=== PATIENT | female | born 1980 | race Caucasian/White ===

== ENCOUNTER 2017-01-09 15:58 | Inpatient (IN) | payer MEDICAID ==
[~2017-01-09] VITALS: Ht 162.6 cm; Wt 72.6 kg
--- NOTE | 2017-01-09 15:58 | NUR ---
Patient was BIBA at this time.
[2017-01-09 16:04] VITALS: BP 133/90
--- NOTE | 2017-01-09 16:14 | NUR ---
Patient being taken to bed 08 via gurney per EMS.
--- NOTE | 2017-01-09 16:32 | NUR ---
36/F biba, according to EMS patient was pulled over on the side of the road, lana in for evaluation of abdominal pain x 2 days. Pt states she was seen at [facility] and was admitted for 5 days. Patient arrived to ED thrashing, moaning, crying c/o abdominal pain. Abdomen is distended, ascitic, firm. Pt states having hx of meth abuse, ETOH abuse and DM. Pt states last alcoholic drink was a month ago and last meth use was 3 weeks ago. Patient is AOX4, very restless and thrashing in bed. Patient c/o 10/10 pain. Denies N/V/D. Denies s/s of UTI. VSS.
--- NOTE | 2017-01-09 17:07 | NUR ---
Sister at bedside.
[2017-01-09] MEDS ORDERED: NACL 0.9% 500 ML IV ONE ×2 (17:35)
[2017-01-09] MEDS ORDERED: KETOROLAC 30 MG/ML VIAL IVP ONE (17:40)
--- NOTE | 2017-01-09 17:49 | NUR ---
Patient taken to x-ray via w/c.
--- NOTE | 2017-01-09 18:08 | NUR ---
Pt returned from x-ray.
--- NOTE | 2017-01-09 18:13 | NUR ---
Family at bedside.
--- NOTE | 2017-01-09 19:17 | NUR ---
Patient being evaluated by Dr. Christina at bedside.
--- NOTE | 2017-01-09 19:24 | NUR ---
Pt report given to Derek. Transfer of care at this time.
--- NOTE | 2017-01-09 19:26 | NUR ---
RECEIVED REPORT FROM ZENA COBB FOR TRANSFER OF CARE.
[2017-01-09] MEDS ORDERED: PIPERACILLIN/TAZOBACTAM 3.375 GM in DEXTROSE 5% 50 ML IV ONE (19:35)
[2017-01-09] MEDS ORDERED: PIPERACILLIN/TAZOBACTAM 3.375 GM VIAL IV ONE (19:51)
[2017-01-09] MEDS ORDERED: ONDANSETRON 4 MG/2 ML VIAL IVP ONE ×2 (20:05→20:30)
[2017-01-09] MEDS ORDERED: NACL 0.9% 1,000 ML IV ONE (20:05)
[2017-01-09] MEDS ORDERED: HYDROmorphone 1 MG/ML AMP IVP ONE (20:05)
--- NOTE | 2017-01-09 20:13 | NUR ---
PT VOMMITED AFTER IV ADMINISTRATION OF ZOFRAN AND DILAUDID. ER MD MADE AWARE. WILL FOLLOW UP WITH ORDERS.
--- NOTE | 2017-01-09 20:30 | NUR ---
PER ER MD DR TORRES. GIVE ANOTHER ZOFRAN IVP WAIT 10 MIN THEN INSERT NG-TUBE.
[2017-01-09] MEDS ORDERED: ACETAMINOPHEN 325 MG TAB PO PRN (20:35)
[2017-01-09] MEDS ORDERED: HYDROcodone/APAP 5/325 MG 1 TAB TAB PO PRN (20:35)
[2017-01-09] MEDS ORDERED: DEXTROSE 50% 50 ML SYR IVP PRN (20:35)
[2017-01-09] MEDS ORDERED: MORPHINE SULFATE 2 MG/ML SYR IVP PRN (20:35)
--- NOTE | 2017-01-09 21:12 | NUR ---
Patient will be admitted to care of DR JERRY. Adm[place] [facility] go to room 105A. Belongings list completed. Report to NIDA ELIZONDO.
--- NOTE | 2017-01-09 21:25 | NUR ---
Admitted from E.. with chief complaint of ABDOMINAL PAIN. A 36 y/o ,Female, Appropriate. ALERT AWAKE ORIENTED X4. INITIAL ASSESSMENT DONE. NO S/S OF RESPIRATORY DISTRESS OR SOB NOTED. NO C/O PAIN OR ANY DISCOMFORT AT THIS TIME. PT HAS NG-TUBE ATTACHED TO INTERMITTENT SUCTION AND TOLERATED WELL. SKIN IS INTACT CLEAN DRY AND WARM TO TOUCH. PLAN OF CARE REVIEWED TO PT AND VERBALIZED UNDERSTANDING. oriented to call light, bed, phone,television, bathroom, smoking policy, visiting hours, procedures, ID bracelet on. Belongings list checked. CALL LIGHT WITHIN REACH. WILL CONTINUE TO MONITOR.
[2017-01-09] MEDS: BLOOD GLUCOSE MONITORING 1 DEV DEV FS SCH (21:30)
--- NOTE | 2017-01-09 21:45 | NUR ---
TAKEN TO X-RAY FOR SMALL BOWEL FOLLOW THROUGH
[2017-01-09] MEDS: DEXT 5% /NACL 0.9% 1,000 ML IV SCH (22:38)
[2017-01-10] VITALS: BP 129/71
--- NOTE | 2017-01-10 | NUR ---
CAME FROM X-RAY. NO C/O ANY DISCOMFORT AT THIS TIME. WILL CONTINUE TO MONITOR,
--- NOTE | 2017-01-10 00:56 | NUR ---
PT IS SLEEPING RIGHT NOW BUT EASILY AROUSABLE. NO S/S OF ANY DISCOMFORT AT THIS TIME. ALL NEEDS ARE ATTENDED. CALL LIGHT WITHIN REACH. WILL CONTINUE TO MONITOR.
[2017-01-10] MEDS: ONDANSETRON 4 MG/2 ML VIAL IVP PRN (04:23)
[2017-01-10] MEDS: DEXT 5% /NACL 0.9% 1,000 ML IV SCH ×3 (04:45→21:35)
--- NOTE | 2017-01-10 06:00 | NUR ---
AM CARE RENDERED. BED LINEN CHANGED. INSTRUCTED PT TO REPOSITION. KEPT CLEAN AND DRY. CALL LIGHT WITHIN REACH. WILL CONTINUE TO MONITOR.
[2017-01-10] MEDS: BLOOD GLUCOSE MONITORING 1 DEV DEV FS SCH ×4 (06:32→21:00)
--- NOTE | 2017-01-10 07:25 | NUR ---
ASSUMED CONTINUITY OF CARE. NO SIGNS AND SYMPTOMS OF ACUTE DISTRESS NOTED. INITIAL ASSESSMENT DONE. KEEP COMFORTABLE ON BED. EXPLAINED DIAGNOSIS, PLAN OF CARE, PAIN MANAGEMENT TEACHING, USE OF CALL LIGHT/BED/TV/BATHROOM. VERBALIZED UNDERSTANDING. CALL LIGHT WITHIN REACH
--- NOTE | 2017-01-10 07:25 | NUR ---
PT HAS NO S/S OF ANY DISCOMFORT. PLAN OF CARE ENDORSE TO AM SHIFT NURSE FOR CONTINUITY OF CARE.
[2017-01-10 08:00] VITALS: BP 118/70
--- NOTE | 2017-01-10 08:00 | NUR ---
Patient's Plan of Care was discussed and reviewed with YOUNG ADULT LIBRARIAN: IJN MEDRANO
--- NOTE | 2017-01-10 08:36 | NUR ---
PATIENT HAS BEEN SCREENED AND CATEGORIZED MODERATE NUTRITION RISK. PATIENT WILL BE SEEN WITHIN 3-5 DAYS OF ADMISSION. 01/12/17-01/14/[address]
[2017-01-10] MEDS ORDERED: ALBUTEROL SULFATE/IPRATROPIU 3 ML SOL IH PRN ×2 (08:50→13:28)
[2017-01-10] MEDS ORDERED: HYDROmorphone 1 MG/ML AMP IVP PRN (08:50)
[2017-01-10] MEDS ORDERED: KCL 20 MEQ/WATER INJ PREMIX 200 ML IV SCH (08:52)
[2017-01-10] MEDS: LEVOFLOXACIN 750 MG/D5W PREMIX 150 ML IV SCH (10:26)
--- NOTE | 2017-01-10 10:40 | NUR ---
JESSICA TO BATHROOM WITHOUT ASSISTANCE. TOLERATED WELL. NO C/O PAIN. NO C/O NAUSEA.
[2017-01-10 12:00] VITALS: BP 115/67
[2017-01-10] MEDS ORDERED: POTASSIUM CHLORIDE 40 MEQ, LIDOCAINE 1% 25 MG in NACL 0.9% 250 ML IV SCH (12:00)
--- NOTE | 2017-01-10 12:00 | NUR ---
DR. WHITEHEAD CAME CHECKED PT. CHART AND SEEN PT..
--- NOTE | 2017-01-10 12:06 | NUR ---
SS NOTE: I SPOKE WITH PT BEDSIDE AND PROVIDED WITH HER WITH OUTPT MENTAL HEALTH RX AND CHEMICAL DEPENDENCY RESOURCES.
[2017-01-10] MEDS: ALBUTEROL SULFATE/IPRATROPIU 3 ML SOL IH SCH ×2 (13:33→19:30)
--- NOTE | 2017-01-10 14:50 | NUR ---
SEEN ASLEEP. EASILY AROUSABLE. NO SOB, NOTED. CALL LIGHT WITHIN REACH.
[2017-01-10] MEDS ORDERED: MAG SULF 2000 MG/WATER PREMIX 50 ML IV SCH (18:00)
--- NOTE | 2017-01-10 19:05 | NUR ---
BEDSIDE REPORT GIVEN TO OLENA GAGNON. IVF INFUSING WELL. ALSO ENDORSED ABOUT MD ORDER OF MAG BURDICK. PT. IN STABLE CONDITION.
--- NOTE | 2017-01-10 19:06 | NUR ---
RECD. RESTING IN BED, AWAKE, A/OX4. RESPIRATION EVEN AND UNLABORED. K RIDER INFUSING AT 68 M/HR LEFT HAND G 20. WITH NGT, RIGHT NARES, ON LOW INTERMITTENT SUCTION DRAINING GREENISH FLUID, MODERATE AMOUNT. ABDOMEN SOFT WITH VERY FAINT BOWEL SOUNDS NOTED ON ALL QUADRANTS. PLAN OF CARE FOR THE SHIFT DISCUSSED. VERBALIZED UNDERSTANDING. DENIES PAIN 0/10.
--- NOTE | 2017-01-10 20:00 | NUR ---
Patient's Plan of Care was discussed and reviewed with SUPERINTENDENT PIER: OLENA LI.
--- NOTE | 2017-01-10 22:36 | NUR ---
MAGNESIUM STARTED. MAG WAS HELD FROM DAY SHIFT DUE TO PT RECEIVING OTHER IV MEDS. WILL CONTINUE TO MONITOR PT.
--- NOTE | 2017-01-10 22:37 | NUR ---
AMBULATED TO BR, GAIT STEADY, SAFETY MAINTAINED.
[2017-01-11] VITALS: BP 139/71
--- NOTE | 2017-01-11 | NUR ---
SLEEPING COMFORTABLY IN BED.
--- NOTE | 2017-01-11 04:00 | NUR ---
AMBULATED THREE TIMES TO BR TO VOID, BACK TO BED AFTER VOIDING. SAFETY MAINTAINED.
[2017-01-11] MEDS: DEXT 5% /NACL 0.9% 1,000 ML IV SCH ×5 (05:55→23:17)
--- NOTE | 2017-01-11 06:00 | NUR ---
STILL SLEEPING COMFORTABLY IN BED. CONDITION REMAIN STABLE. WILL ENDORSE TO AM NURSE FOR CONTINUITY OF CARE.
[2017-01-11] MEDS: BLOOD GLUCOSE MONITORING 1 DEV DEV FS SCH ×4 (06:31→21:17)
[2017-01-11] MEDS ORDERED: FLUCONAZOLE 200 MG/NS PREMIX 100 ML IV SCH (07:00)
--- NOTE | 2017-01-11 07:10 | NUR ---
ENDORSED TO ZENA SHARP FOR CONTINUITY OF CARE.
--- NOTE | 2017-01-11 07:11 | NUR ---
ASSUMED CONTINUITY OF CARE. NO SIGNS AND SYMPTOMS OF ACUTE DISTRESS NOTED. INITIAL ASSESSMENT DONE. HOB ELEVATED. EXPLAINED DIAGNOSIS, PLAN OF CARE, PAIN MANAGEMENT TEACHING, USE OF CALL LIGHT/BED/TV/BATHROOM. VERBALIZED UNDERSTANDING. CALL LIGHT WITHIN REACH.
[2017-01-11] MEDS: ALBUTEROL SULFATE/IPRATROPIU 3 ML SOL IH SCH ×3 (07:29→18:00)
[2017-01-11 08:00] VITALS: BP 108/67
--- NOTE | 2017-01-11 08:00 | NUR ---
Patient's Plan of Care was discussed and reviewed with MIDDLEWARE SYSTEMS ARCHITECT: LILA
[2017-01-11] MEDS: FUROSEMIDE 20 MG/2 ML VIAL IVP SCH (08:08)
[2017-01-11] MEDS ORDERED: POTASSIUM CHLORIDE 10 MEQ TABER PO SCH (08:30)
[2017-01-11] MEDS ORDERED: POTASSIUM PHOSPHATE 15 MM in NACL 0.9% 250 ML IV ONE (08:30)
[2017-01-11] MEDS ORDERED: KCL 20 MEQ/WATER INJ PREMIX 100 ML IV ONE (09:10)
--- NOTE | 2017-01-11 10:14 | NUR ---
EXPLAINED ABOUT INSERTING ANOTHER NEW IV ACCESS FOR ANTI-BIOTIC INFUSION. VERBALIZED UNDERSTANDING BUT PT. REFUSED IV INSERTION.
[2017-01-11 12:00] VITALS: BP 114/68
[2017-01-11] MEDS ORDERED: CLINDAMYCIN 600 MG in DEXTROSE 5% 50 ML IV SCH (13:00)
[2017-01-11] MEDS: CLINDAMYCIN 600 MG in DEXTROSE 5% 50 ML IV SCH ×2 (16:04→21:11)
[2017-01-11] MEDS: LEVOFLOXACIN 750 MG/D5W PREMIX 150 ML IV SCH (17:18)
[2017-01-11] MEDS ORDERED: POTASSIUM CHLORIDE 40 MEQ, LIDOCAINE 1% 25 MG in NACL 0.9% 250 ML IV SCH (18:00)
[2017-01-11] MEDS ORDERED: KCL 20 MEQ/WATER INJ PREMIX 100 ML IV SCH (18:00)
--- NOTE | 2017-01-11 19:23 | NUR ---
BEDSIDE REPORT GIVEN TO BRIAN JEFFERS -NIDA. IVF INFUSING WELL. IN STABLE CONDITION.
--- NOTE | 2017-01-11 19:24 | NUR ---
RECEIVED REPORT FROM DAY RN FOR CONTINUITY OF CARE. PATIENT IS A&OX4, DISCUSSED PLAN OF CARE WITH PATIENT AND FAMILY MEMBERS AT BEDSIDE, VERBALIZED UNDERSTANDING. SHIFT ASSESSMENT DONE, VS TAKEN, STABLE AT THIS TIME. NO S/S OF RESPIRATORY DISTRESS NOTED ON ROOM AIR. PATIENT DENIES PAIN AT THIS TIME. PT HAS IV TO LEFT HAND 20 GAUGE CHANGED DRESSING AND FLUSHED. NG TUBE TO RIGHT NARE, INTERMITTENT LOW SUCTION, 200 ML CLEAR DRAINAGE NOTED. SAFETY/ FALL PRECAUTIONS ENFORCED. CALL LIGHT PLACED WITHIN REACH AND PT ENCOURAGED TO USE FOR ASSISTANCE. WILL CONTINUE TO MONITOR.
[2017-01-11 20:00] VITALS: BP 118/75
--- NOTE | 2017-01-11 20:09 | NUR ---
1929 HHNTX REFUSED BY PATIENT. PT STATES SHE DOES NOT NEED THEM. PT WILL CALL IF SHE WANTS ONE. NO SOB NOTED.. ROOM AIR 97% SATS.
--- NOTE | 2017-01-11 22:04 | NUR ---
SPOKE TO DR. JESSEE I. REGARDING MEDICATIONS FOR SLEEP PER PT REQUEST. INFORMED DR THAT PATIENT HAS 200 ML CLEAR DRAINAGE FROM NG TUBE AND HAD A BOWEL MOVEMENT TODAY. WILL FOLLOW OUT ORDERS GIVEN.
[2017-01-11] MEDS ORDERED: ZOLPIDEM 5 MG TAB PO SCH (22:20)
--- NOTE | 2017-01-11 22:24 | NUR ---
ADMINISTERED MEDICATION FOR SLEEP PER MD ORDER. ALL OTHER NEEDS MET AT THIS TIME. CALL LIGHT WITHIN REACH.
[2017-01-12] VITALS: BP 129/78
--- NOTE | 2017-01-12 00:26 | NUR ---
VS TAKEN, STABLE. PT AMBULATED TO RESTROOM, VOIDED. NO S/S OF DISTRESS OR DISCOMFORT NOTED. WILL CONTINUE TO MONITOR.
[2017-01-12] MEDS: DEXT 5% /NACL 0.9% 1,000 ML IV SCH ×6 (00:54→23:53)
--- NOTE | 2017-01-12 02:03 | NUR ---
PT AMBULATED TO RESTROOM. NO S/S OF DISTRESS OR DISCOMFORT NOTED WILL CONTINUE TO MONITOR.
--- NOTE | 2017-01-12 03:52 | NUR ---
PT IS SLEEPING. NO S/S OF DISTRESS OR DISCOMFORT. NG TUBE DRAINING GREEN OUTPUT. WILL CONTINUE TO MONITOR.
[2017-01-12] MEDS: CLINDAMYCIN 600 MG in DEXTROSE 5% 50 ML IV SCH ×3 (04:52→20:31)
[2017-01-12] MEDS: BLOOD GLUCOSE MONITORING 1 DEV DEV FS SCH ×4 (06:31→20:32)
[2017-01-12] MEDS: INSULIN LISPRO SLIDING SCALE 100 UNITS/ML VIAL SUBQ PRN ×3 (06:32→20:40)
--- NOTE | 2017-01-12 06:32 | NUR ---
BLOOD SUGAR 242, ADMINISTERED INSULIN PER MD ORDER. EMPTIED 700 ML GREEN OUTPUT FROM NG DRAINAGE.
[2017-01-12] MEDS: ALBUTEROL SULFATE/IPRATROPIU 3 ML SOL IH SCH ×3 (07:05→19:44)
--- NOTE | 2017-01-12 07:30 | NUR ---
ENDORSED PATIENT TO DAY RN FOR CONTINUITY OF CARE, PATIENT IS IN STABLE CONDITION.
--- NOTE | 2017-01-12 07:30 | NUR ---
RECEIVED REPORT FROM NIGHT NURSE. PT RESTING COMFORTABLY IN BED. AOX4, ABLE TO VERBALIZE NEEDS. NO S/S OF SOB, CP OR ACUTE DISTRESS. NG TUBE IN PLACE, INTERMITTENT LOW WALL SUCTION, DRAINING DARK GREEN FLUID. IV SITE ASYMPTOMATIC, PATENT AND INTACT. REVIEWED AND DISCUSSED PLAN OF CARE WITH PT, PT VERBALIZES UNDERSTANDING. SAFETY MEASURES ENSURED. CALL LIGHT AND BELONGINGS WITHIN REACH.
[2017-01-12 08:00] VITALS: BP 117/72
[2017-01-12] MEDS ORDERED: POTASSIUM CHLORIDE 40 MEQ, LIDOCAINE 1% 25 MG, MAGNESIUM SULFATE 50% 2,000 MG in NACL 0... IV ONE (09:15)
[2017-01-12] MEDS ORDERED: POTASSIUM CHLORIDE 40 MEQ, LIDOCAINE 1% 25 MG, MAGNESIUM SULFATE 50% 2,000 MG in NACL 0... IV SCH (10:00)
[2017-01-12] MEDS: FUROSEMIDE 20 MG/2 ML VIAL IVP SCH (10:09)
[2017-01-12] MEDS: LEVOFLOXACIN 750 MG/D5W PREMIX 150 ML IV SCH (10:13)
--- NOTE | 2017-01-12 10:25 | NUR ---
LEFT HAND IV SITE INFILTRATED, PT REPORTS PAIN AND TENDERNESS UPON FLUSHING. NEW IV SITE INSERTED ON LEFT FOREARM, ASYMPTOMATIC, PATENT AND INTACT. LEFT HAND IV REMOVED, CANNULA INTACT, PT TOLERATED WELL. MEDICATIONS ADMINISTERED WITH EDUCATION, PT VERBALIZES UNDERSTANDING. PT TOLERATED WELL.
--- NOTE | 2017-01-12 14:00 | NUR ---
ASSISTED PT TO RESTROOM. PT TOLERATED WELL, PT REPORTS NO PAIN WITH ACTIVITY. IVF INFUSING WELL. NO S/S OF ACUTE DISTRESS. SAFETY MEASURES ENSURED. CALL LIGHT WITHIN REACH.
--- NOTE | 2017-01-12 14:29 | NUR ---
01/12/17 RD INITIAL ASSESSMENT COMPLETED PLEASE REFER TO NUTRITION ASSESSMENT UNDER CARE ACTIVITY FOR ESTIMATED NUTRITIONAL NEEDS. RD RECOMMENDATIONS: WHEN MEDICALLY APPROPRIATE ADVANCE TO [facility] 60 GM CLEAR LIQUID DIET --IF INAPPROPRIATE TO ADVANCE DIET CONSIDER NUTRITION SUPPORT D/T PT NPO X3 DAYS 2. RD WILL F/U 2-3 DAYS; HIGH RISK. YANY SANDERSON RD
[2017-01-12 16:00] VITALS: BP 115/71
--- NOTE | 2017-01-12 19:30 | NUR ---
RECEIVED REPORT FROM DAY RN AT BEDSIDE, PATIENT IN STABLE CONDITION, AAOX4 ON ROOM AIR, NO SOB OR SIGN OF DISTRESS AT THIS TIME. PATIENT HAS IV TO LFA PATENT AND INTACT WITH IVF INFUSING WELL. NG TUBE TO RIGHT NARE TO INTERMITTENT SUCTION WITH GREEN DRAINAGE NOTED. PATIENT DENIES PAIN AT THIS TIME, DISCUSSED PLAN OF CARE WITH PATIENT, PATIENT VERBALIZED UNDERSTANDING, SAFETY MEASURES CHECKED, CALL LIGHT WITHIN REACH. WILL CONTINUE TO MONITOR.
--- NOTE | 2017-01-12 19:30 | NUR ---
CONDITION STABLE, ENDORSED PLAN OF CARE TO CARBON GRINDER.
--- NOTE | 2017-01-12 19:45 | NUR ---
PT REFUSED HHNTX AT THIS TIME. NO RESP DISTRESS NOTED OR SOB. PT STATES THAT SHE DOES NOT NEED IT AT THIS TIME.
--- NOTE | 2017-01-12 20:40 | NUR ---
PM MEDS ADMINISTERED, PATIENT TOLERATED WELL BS 168, PATIENT RESTING IN BED WATCHING TV, CALL LIGHT WITHIN REACH. WILL CONTINUE TO MONITOR.
--- NOTE | 2017-01-12 22:53 | NUR ---
PATIENT UP TO RESTROOM, HAD DM, NO SIGN OF DISTRESS, WILL CONTINUE TO MONITOR.
[2017-01-13] VITALS: BP 115/62
--- NOTE | 2017-01-13 00:05 | NUR ---
VITAL SIGNS STABLE, PATIENT SLEEPING COMFORTABLE, NO SOB OR SIGN OF DISTRESS AT THIS TIME, CALL LIGHT WITHIN REACH. WILL CONTINUE TO MONITOR.
--- NOTE | 2017-01-13 02:00 | NUR ---
PATIENT SLEEPING, NO SOB OR SIGN OF DISTRESS AT THIS TIME, CALL LIGHT WITHIN REACH. WILL CONTINUE TO MONITOR
[2017-01-13] MEDS: DEXT 5% /NACL 0.9% 1,000 ML IV SCH ×3 (03:24→11:17)
--- NOTE | 2017-01-13 04:30 | NUR ---
PATIENT SLEEPING, NO SOB OR SIGN OF DISTRESS, CALL LIGHT WITHIN REACH. WILL CONTINUE TO MONITOR.
[2017-01-13] MEDS: CLINDAMYCIN 600 MG in DEXTROSE 5% 50 ML IV SCH ×3 (04:36→21:18)
[2017-01-13] MEDS: INSULIN LISPRO SLIDING SCALE 100 UNITS/ML VIAL SUBQ PRN ×4 (06:44→21:22)
[2017-01-13] MEDS: BLOOD GLUCOSE MONITORING 1 DEV DEV FS SCH ×4 (06:45→21:22)
[2017-01-13] MEDS: ALBUTEROL SULFATE/IPRATROPIU 3 ML SOL IH SCH ×4 (07:08→19:38)
--- NOTE | 2017-01-13 07:22 | NUR ---
ENDORSED PATIENT TO DAY RN AT BEDSIDE, PATIENT IN STABLE CONDITION
[2017-01-13 08:00] VITALS: BP 110/60
[2017-01-13] MEDS: FUROSEMIDE 20 MG/2 ML VIAL IVP SCH (09:00)
--- NOTE | 2017-01-13 09:00 | NUR ---
LASIX HELD DUE TO LOW POTASSIUM. MD AWARE, PENDING ORDERS. MEDICATIONS GIVEN WITH EDUCATION. PT VERBALIZES UNDERSTANDING. PT TOLERATED WELL. SAFETY MEASURES ENSURED.
[2017-01-13] MEDS ORDERED: BENZOCAINE/MENTHOL 1 LOZ MM PRN (09:15)
[2017-01-13] MEDS: LEVOFLOXACIN 750 MG/D5W PREMIX 150 ML IV SCH (09:46)
--- NOTE | 2017-01-13 11:18 | NUR ---
SERUM K 3.1; NOTIFIED DR HERNANDEZ, NEW ORDER ACKNOWLEDGED FOR PJ.
--- NOTE | 2017-01-13 11:45 | NUR ---
PT EVALUATED BY DR VILLANUEVA, DISCUSSED PT CONDITION AND PLAN OF CARE. NEW ORDERS ACKNOWLEDGED AND CARRIED OUT.
[2017-01-13] MEDS: POTASSIUM CHL 20 MEQ/ 1/2 NS 1,000 ML IV SCH ×2 (11:55→14:57)
[2017-01-13] MEDS ORDERED: POTASSIUM CHLORIDE 40 MEQ, LIDOCAINE 1% 25 MG in NACL 0.9% 250 ML IV SCH (12:00)
[2017-01-13] MEDS: METOCLOPRAMIDE 10 MG/2 ML INJ VIAL IVP SCH ×3 (12:56→23:44)
[2017-01-13] MEDS: BENZOCAINE 20% 57 GM CAN MC PRN (13:00)
--- NOTE | 2017-01-13 13:00 | NUR ---
ADMINISTERED MEDICATIONS WITH EDUCATION, PT VERBALIZES UNDERSTANDING. PT TOLERATED WELL. IVF INFUSING WELL. SAFETY MEASURES ENSURED. CALL LIGHT WITHIN REACH. PT C/O SORE THROAT, SEE PAIN ASSESSMENT, MEDICATED ORDERED. FAMILY AT BEDSIDE.
[2017-01-13 16:00] VITALS: BP 101/68
[2017-01-13] MEDS ORDERED: POTASSIUM CHLORIDE 20% 40 MEQ/15 ML UDC GT SCH (17:00)
--- NOTE | 2017-01-13 18:30 | NUR ---
PT VOMITTED EMESIS. PT STATED NOT FEELING NAUSEA AFTER EMESIS, ZOFRAN REFUSED. NOTIFIED RADIOLOGY. SUCTION TO LOW INTERMITTENT PER MD ORDERS. CONDITION STABLE. WILL CONTINUE TO MONITOR.
--- NOTE | 2017-01-13 19:10 | NUR ---
RECEIVED REPORT FROM NIDA MATHEWS/ZOILA AT BEDSIDE. INITIAL ASSESSMENT COMPLETED. PT AAOX4. PT AMBULATORY. PT HAS IV TO LEFT WRIST G 2O; ASYMPTOMATIC, PATENT AND INTACT INFUSING FLUIDS WELL. PT'S SKIN IS INTACT. PT HAS NG TUBE TO RIGHT NARE TO SUCTION. ORIENTED PT TO ROOM AND SURROUNDINGS AND USE OF PALMER LIGHT. EXPLAINED PLAN OF CARE TO PT AND SHE VERBALIZED UNDERSTANDING. CALL LIGHT WITHIN REACH.
--- NOTE | 2017-01-13 19:30 | NUR ---
ENDORSED PLAN OF CARE TO NIGHT NURSE. CONDITION STABLE.
--- NOTE | 2017-01-13 19:30 | NUR ---
CONDITION STABLE, ENDORSED PLAN OF CARE TO BANQUET SERVER RN.
--- NOTE | 2017-01-13 20:40 | NUR ---
REVIEW RN AT BEDSIDE. CALL LIGHT WITHIN REACH.
--- NOTE | 2017-01-13 21:23 | NUR ---
PT TOLERATED 2100 MED WELL. CALL LIGHT WITHIN REACH.
--- NOTE | 2017-01-13 23:48 | NUR ---
0000 REGLAN GIVEN. PT IN BED RESTING, WILL CONTINUE TO MONITOR PT.
[2017-01-14] VITALS: BP 108/74
--- NOTE | 2017-01-14 02:15 | NUR ---
ROUNDS MADE. PT SLEEPING COMFORTABLE, NO SIGNS OF DISTRESS OR DISCOMFORT NOTE. WILL CONTINUE TO MONITOR PT.
[2017-01-14] MEDS: CLINDAMYCIN 600 MG in DEXTROSE 5% 50 ML IV SCH ×3 (04:13→21:15)
--- NOTE | 2017-01-14 04:25 | NUR ---
0500 ANTIBIOTIC INFUSING NOW. PT STABLE, CALL LIGHT WITHIN REACH.
[2017-01-14] MEDS: METOCLOPRAMIDE 10 MG/2 ML INJ VIAL IVP SCH ×4 (05:07→23:39)
[2017-01-14] MEDS: BLOOD GLUCOSE MONITORING 1 DEV DEV FS SCH ×4 (06:12→21:17)
--- NOTE | 2017-01-14 06:22 | NUR ---
PROCEDURE MANAGER AT BEDSIDE DRAWING MORNING LABS.
--- NOTE | 2017-01-14 07:05 | NUR ---
RECEIVED PATIENT REPORT AT BEDSIDE. NO S/S OF DISTRESS NOTED. NO C/O OF PAIN. MOTHER PRESENT AT BEDSIDE. NGT IN PLACE ON INTERMITTENT SUCTION WITH GREEN DRAINAGE NOTED. IV LINE TO THE LEFT WRIST INTACT WITH IVF INFUSING WELL. BED LOWERED WITH CALL LIGHT WITHIN REACH. WILL CONTINUE TO MONITOR
--- NOTE | 2017-01-14 07:29 | NUR ---
ENDORSED PLAN OF CARE TO NIDA LONG. PT IN STABLE CONDITION.
[2017-01-14] MEDS: ONDANSETRON 4 MG/2 ML VIAL IVP PRN (07:50)
[2017-01-14] MEDS: POTASSIUM CHL 20 MEQ/ 1/2 NS 1,000 ML IV SCH (07:51)
[2017-01-14 08:00] VITALS: BP 104/71
--- NOTE | 2017-01-14 08:05 | NUR ---
PATIENT VOMITED 1000ML OF GREEN LIQUID. PATIENT MEDICATE. NO C/O OF PAIN. NGT CLAMPED. SUCTION TO BE RESUMED IN 5HRS. WILL CONTINUE TO MONITOR
--- NOTE | 2017-01-14 09:13 | NUR ---
DR COON NOTIFIED OF SMALL BOWEL FOLLOW THROUGH RESULTS, ORDERS RECEIVED TO PLACE NGT TO LOW-INTERMITTENT SUCTION. ENDORSED TO PT'S NIDA LONG. Addendum: 01/14/17 at 0918 by Erica Stoner RN ADD TO ENTRY: PAGED DR WHITEHEAD AT THIS TIME.
[2017-01-14] MEDS: LEVOFLOXACIN 750 MG/D5W PREMIX 150 ML IV SCH (10:08)
--- NOTE | 2017-01-14 11:10 | NUR ---
PATIENT SEEN BY DR WHITEHEAD
[2017-01-14] MEDS: ALBUTEROL SULFATE/IPRATROPIU 3 ML SOL IH SCH ×2 (12:00→19:15)
--- NOTE | 2017-01-14 12:30 | NUR ---
PATIENT COMFORTABLY RESTING IN BED. NO S/S OF DISTRESS NOTED. NO C/O OF PAIN. FAMILY MEMBERS PRESENT AT BEDSIDE
--- NOTE | 2017-01-14 12:58 | NUR ---
PT REFUSED SCHEDULED BREATHING HHN TX, PT STATED THAT SHE HAD NO RESP DISTRESS OR SOB, INFORMED TO CONTACT NURSE IF PT HAS ANY SOB, WILL CONTINUE TO MONITOR.
--- NOTE | 2017-01-14 14:53 | NUR ---
PATIENT ASLEEP IN BED. NO S/S OF DISTRESS NOTED
[2017-01-14 16:00] VITALS: BP 106/62
--- NOTE | 2017-01-14 17:31 | NUR ---
PATIENT ASLEEP IN BED. NO S/S OF DISTRESS NOTED
[2017-01-14] MEDS ORDERED: DEXT 5% / NACL 0.9% 500 ML IV SCH (17:40)
[2017-01-14] MEDS: POTASSIUM CHL 20 MEQ/D5-1/2NS 1,000 ML IV SCH (18:47)
--- NOTE | 2017-01-14 19:30 | NUR ---
RECEIVED REPORT FROM NIDA LONG AT BEDSIDE. INITIAL ASSESSMENT COMPLETED. PT AAOX4. PT AMBULATORY. PT HAS IV TO LEFT WRIST G 2O; ASYMPTOMATIC, PATENT AND INTACT INFUSING FLUIDS WELL. PT'S SKIN IS INTACT. PT HAS NG TUBE TO RIGHT NARE TO INTERMITENT SUCTION. ORIENTED PT TO ROOM AND SURROUNDINGS AND USE OF PALMER LIGHT. EXPLAINED PLAN OF CARE TO PT AND SHE VERBALIZED UNDERSTANDING. CALL LIGHT WITHIN REACH.
--- NOTE | 2017-01-14 19:33 | NUR ---
GAVE PT REPORT AT BEDSIDE. ENDORSED PATIENT IN STABLE CONDITION
[2017-01-14] MEDS: INSULIN LISPRO SLIDING SCALE 100 UNITS/ML VIAL SUBQ PRN (21:18)
--- NOTE | 2017-01-14 21:20 | NUR ---
2100 ANTIBIOTIC INFUSING NOW. PT STABLE. CALL LIGHT WITHIN REACH.
--- NOTE | 2017-01-14 23:41 | NUR ---
0000 MEDICATION GIVEN. PT STABLE, CALL LIGHT WITHIN REACH.
[2017-01-15] VITALS: BP 111/65
--- NOTE | 2017-01-15 02:35 | NUR ---
PT SLEEPING AT THIS TIME. NG TUBE WORKING/SUCTIONING WELL. WILL CONTINUE TO MONITOR PT.
[2017-01-15] MEDS: POTASSIUM CHL 20 MEQ/D5-1/2NS 1,000 ML IV SCH ×3 (05:35→21:00)
[2017-01-15] MEDS: CLINDAMYCIN 600 MG in DEXTROSE 5% 50 ML IV SCH ×3 (05:36→20:55)
[2017-01-15] MEDS: METOCLOPRAMIDE 10 MG/2 ML INJ VIAL IVP SCH ×4 (05:36→23:22)
--- NOTE | 2017-01-15 05:45 | NUR ---
PT TOLERATED 2100 MEDS WELL. WILL CONTINUE TO MONITOR PT.
[2017-01-15] MEDS: ALBUTEROL SULFATE/IPRATROPIU 3 ML SOL IH SCH ×3 (06:00→19:00)
[2017-01-15] MEDS: INSULIN LISPRO SLIDING SCALE 100 UNITS/ML VIAL SUBQ PRN ×2 (06:19→23:25)
[2017-01-15] MEDS: BLOOD GLUCOSE MONITORING 1 DEV DEV FS SCH (06:26)
--- NOTE | 2017-01-15 07:05 | NUR ---
ENDORSED PLAN OF CARE TO NIDA SHARP. PT IN STABLE CONDITION.
--- NOTE | 2017-01-15 07:58 | NUR ---
Patient's Plan of Care was discussed and reviewed with MILL CONTROLLER: LILA MIRAMONTES
[2017-01-15 08:00] VITALS: BP 98/62
[2017-01-15] MEDS: LEVOFLOXACIN 750 MG/D5W PREMIX 150 ML IV SCH (09:24)
[2017-01-15] MEDS ORDERED: TPN PER PHARMACY MC PRN (10:35)
--- NOTE | 2017-01-15 11:45 | NUR ---
AMBULATES ON HALLWAY. TOLERATED WELL. HAD STEADY GAIT AND BALANCE. NO SOB, NOTED.
[2017-01-15] MEDS: BLOOD GLUCOSE MONITORING 1 DEV DEV MC SCH ×3 (12:00→23:22)
--- NOTE | 2017-01-15 12:32 | NUR ---
01/15/17 RD FOLLOW UP COMPLETED PLEASE REFER TO NUTRITION PROGRESS NOTE UNDER CARE ACTIVITY FOR ESTIMATED NUTRITION NEEDS. RD RECOMMENDATIONS: RECOMMEND INITIATION OF TPN PER PHARMACIST RECOMMENDATION D/T SBO AND PT BEING NPO SINCE ADMIT. WHEN MEDICALLY APPROPRIATE ADVANCE TO [facility] 60 GM CLEAR LIQUID DIET AND ADVANCE SLOWLY TOLERATED 3. RD WILL F/U 2-3 DAYS; HIGH RISK. YANY SANDERSON RD
--- NOTE | 2017-01-15 14:30 | NUR ---
SEEN WATCHING TV. NO DISCOMFORT NOTED. CALL LIGHT WITHIN REACH.
[2017-01-15 16:00] VITALS: BP 106/74
[2017-01-15] MEDS: BENZOCAINE 20% 57 GM CAN MC PRN ×2 (16:22→23:27)
--- NOTE | 2017-01-15 16:27 | NUR ---
WENT TO BATHROOM WITHOUT ASSISTANCE. TOLERATED WELL. NO C/O PAIN.
--- NOTE | 2017-01-15 19:00 | NUR ---
PT REFUSED HHN TX, PT HR 83, RR 16, SATURATION 100% ON ROOM AIR, BREATH SOUNDS CLEAR BILATERALLY. NO DISTRESS/SOB/WHEEZING NOTED AT THIS TIME.
--- NOTE | 2017-01-15 19:10 | NUR ---
BEDSIDE REPORT GIVEN TO DASIA CHINCHILLA. IVF INFUSING WELL. IN STABLE CONDITION.
--- NOTE | 2017-01-15 19:30 | NUR ---
ASSUMED CARE OF PATIENT, AWAKE, ALERT AND ORIENTED. NO COMPLAINS. NGT TO LOW INTERMITTENT SUCTION. CALL LIGHT WITHIN REACH. AMBULATE BRP.
--- NOTE | 2017-01-15 20:00 | NUR ---
PLAN OF CARE DISCUSSED WITH PATIENT, VERBALIZED UNDERSTANDING WELL. NO COMPLAINS. CALL LIGHT WITHIN REACH.
[2017-01-15] MEDS: MULTIVITAMIN-12 10 ML in DEXTROSE 50% 600 ML, AMINO ACIDS 8.5% 600 ML, FAT EMULSION 20%... IV SCH (20:28)
[2017-01-16] VITALS (9 sets, daily range): BP systolic 89–103; BP diastolic 51–65
--- NOTE | 2017-01-16 00:28 | NUR ---
NGT TO LOW INTERMITTENT SUCTION. VITAL SIGNS STABLE. NO COMPLAINS. CALL LIGHT WITHIN REACH.
[2017-01-16] MEDS: CLINDAMYCIN 600 MG in DEXTROSE 5% 50 ML IV SCH ×3 (05:06→20:13)
[2017-01-16] MEDS: METOCLOPRAMIDE 10 MG/2 ML INJ VIAL IVP SCH ×3 (05:12→20:14)
[2017-01-16] MEDS: BLOOD GLUCOSE MONITORING 1 DEV DEV MC SCH ×3 (05:16→18:07)
[2017-01-16] MEDS: INSULIN LISPRO SLIDING SCALE 100 UNITS/ML VIAL SUBQ PRN ×4 (05:56→18:09)
--- NOTE | 2017-01-16 06:58 | NUR ---
ENDORSED CARE AT BEDSIDE WITH MITCHELL POST PRODUCTION ASSISTANT, PATIENT IN STABLE CONDITION.
--- NOTE | 2017-01-16 07:00 | NUR ---
ASSUMED CONTINUITY OF CARE. NO SIGNS AND SYMPTOMS OF ACUTE DISTRESS NOTED. INITIAL ASSESSMENT DONE. HOB ELEVATED. KEEP COMFORTABLE ON BED. EXPLAINED DIAGNOSIS, PLAN OF CARE, PAIN MANAGEMENT TEACHING, NGT CARE, USE OF CALL LIGHT/BED/TV/BATHROOM. VERBALIZED UNDERSTANDING. CALL LIGHT WITHIN REACH.
--- NOTE | 2017-01-16 07:00 | NUR ---
Patient's Plan of Care was discussed and reviewed with HOME MANAGEMENT SUPERVISOR: LILA KERR
[2017-01-16] MEDS: ALBUTEROL SULFATE/IPRATROPIU 3 ML SOL IH SCH ×3 (07:30→19:53)
[2017-01-16] MEDS: LEVOFLOXACIN 750 MG/D5W PREMIX 150 ML IV SCH (09:38)
[2017-01-16] MEDS: POTASSIUM CHL 20 MEQ/D5-1/2NS 1,000 ML IV SCH (09:38)
[2017-01-16] MEDS ORDERED: MAG SULF 2000 MG/WATER PREMIX 50 ML IV SCH (10:43)
--- NOTE | 2017-01-16 11:55 | NUR ---
PICC LINE NURSE CAME FOR PT. PICC LINE INSERTION.
--- NOTE | 2017-01-16 13:15 | NUR ---
OR NURSE CERVANTES CAME AND PICK-UP PT. FOR PROCEDURE. ASKED OR NURSE CERVANTES THERE'S NO ORDER OF ANY PROCEDURE FROM MD. ZAHIRA TOLD TO ASK DR. PEREZ TO CALL DR. KEITH. ASKED DR. PEREZ THAT OR NURSE CERVANTES WAS HERE AND PICKING UP PT. FOR PROCEDURE, AND ASKED DR. PEREZ THAT NO MD ORDER FOR ANY PROCEDURE. DR. PEREZ SAID THAT HE WILL CALL DR. KEITH AND ASKED FOR ORDER. INFORMED CHARGE NURSE YEHUDA BENAVIDES -NIDA
--- NOTE | 2017-01-16 13:20 | NUR ---
PT. WENT TO OR VIA [facility]. OR NURSE CERVANTES ASKED FOR ASSISTANCE FOR IV PUMP. INFORMED CHARGE NURSE YEHUDA CHINCHILLA. INFORMED DR. PEREZ THAT PT. WAS TRANSPORTED TO OR.
[2017-01-16] MEDS ORDERED: GENTAMICIN 80 MG/2 ML VIAL ONE (14:17)
[2017-01-16] MEDS ORDERED: ROCURONIUM 50 MG/5 ML VIAL IV ONE (14:21)
[2017-01-16] MEDS ORDERED: SUCCINYLCHOLINE CHLORIDE 200 MG/10 ML VIAL IV ONE (14:21)
[2017-01-16] MEDS ORDERED: PROPOFOL 200 MG/20 ML VIAL IV ONE (14:21)
[2017-01-16] MEDS ORDERED: PHENYLEPHRINE 10 MG/ML VIAL IV ONE (14:21)
[2017-01-16] MEDS ORDERED: ONDANSETRON 4 MG/2 ML VIAL IVP ONE (14:21)
[2017-01-16] MEDS ORDERED: SEVOFLURANE 250 ML BTL INH ONE (14:21)
[2017-01-16] MEDS ORDERED: MIDAZOLAM 2 MG/2 ML VIAL ONE (14:35)
[2017-01-16] MEDS ORDERED: fentaNYL 0.05 MG/ML VIAL ONE (14:35)
[2017-01-16] MEDS ORDERED: MORPHINE SULFATE 4 MG/ML SYR ONE (14:35)
[2017-01-16] MEDS ORDERED: MEPERIDINE 50 MG/ML SYR ONE (15:28)
[2017-01-16] MEDS ORDERED: LACTATED RINGERS 1,000 ML IV SCH (15:38)
[2017-01-16] MEDS ORDERED: MEPERIDINE 25 MG/ML SYR IVP PRN (15:40)
[2017-01-16] MEDS ORDERED: diphenhydrAMINE 50 MG/ML VIAL IVP PRN (15:40)
[2017-01-16] MEDS ORDERED: BLOOD GLUCOSE MONITORING 1 DEV DEV FS ONE (15:40)
[2017-01-16] MEDS ORDERED: HYDROmorphone 1 MG/ML AMP IVP PRN (15:40)
[2017-01-16] MEDS ORDERED: ONDANSETRON 4 MG/2 ML VIAL IVP PRN (15:40)
[2017-01-16] MEDS ORDERED: NACL 0.9% 1,000 ML IV SCH (16:05)
--- NOTE | 2017-01-16 17:10 | NUR ---
RECEIVED FROM OR VIA [employer]. IN STABLE CONDITION. KEEP COMFORTABLE ON BED. EXPLAINED POST-OP CARE, INCISION CARE, PAIN MANAGEMENT TEACHING, USE OF CALL LIGHT/BED/TV/BATHROOM. VERBALIZED UNDERSTANDING. CALL LIGHT WITHIN REACH.
--- NOTE | 2017-01-16 18:10 | NUR ---
INFORMED DR. PEREZ OF PT. BLOOD SUGAR LEVEL 304. DR. PEREZ ORDER TO FOLLOW HUMALOG INSULIN SLIDING SCALE COVERAGE.
--- NOTE | 2017-01-16 19:09 | NUR ---
BEDSIDE REPORT GIVEN TO CHARLEEN HARLEY -NIDA. IN STABLE CONDITION.
--- NOTE | 2017-01-16 19:10 | NUR ---
RECEIVED PT FROM AMELIA FREITAS PT ENGLISH SPEAKER AAOX4 S/P EXPLORATORY LAP ABD DRESSING DRY AND INTACT PERISTALSIS PRESENT ON BILATERAL SEQUENTIAL STOCKING PICC LINE ON RT UA TPN AND IV FLUIDS INFUSING WELL RELATIVES AT BED SIDE BP 89/57 PULSE 92 DENIES ANY PAIN AT THIS TIME INITIAL ASSESSMENT DONE
--- NOTE | 2017-01-16 19:34 | NUR ---
PT REFUSED HHNTX, SPO2 96% ON ROOM AIR, HR 86, NO RESP DISTRESS NOTED AT THIS TIME.
[2017-01-16] MEDS: MULTIVITAMIN-12 10 ML in DEXTROSE 50% 600 ML, AMINO ACIDS 8.5% 600 ML, FAT EMULSION 20%... IV SCH (20:13)
--- NOTE | 2017-01-16 21:00 | NUR ---
PT AWAKE REPOSITIONED Q2H NOT DISTRESS NOTED GETTING SLEEP
--- NOTE | 2017-01-16 23:00 | NUR ---
PT SLEEPING WELL IV ON RT UA PIIC LINE INFUSING WELL NOT DISTRESS AT THIS TIME NOTED
[2017-01-17] VITALS: BP 89/61
[2017-01-17] MEDS: INSULIN LISPRO SLIDING SCALE 100 UNITS/ML VIAL SUBQ PRN ×4 (01:16→18:05)
[2017-01-17 04:00] VITALS: BP 88/68
--- NOTE | 2017-01-17 04:00 | NUR ---
SPONGE BATH GIVEN LINEN CHANGED, TPN INFUSING WELL ON RT UA, VOIDING WELL ON BED TUCKER
[2017-01-17] MEDS: METOCLOPRAMIDE 10 MG/2 ML INJ VIAL IVP SCH ×3 (05:02→20:21)
[2017-01-17] MEDS: CLINDAMYCIN 600 MG in DEXTROSE 5% 50 ML IV SCH ×3 (05:02→20:09)
[2017-01-17] MEDS: BLOOD GLUCOSE MONITORING 1 DEV DEV MC SCH ×4 (05:28→18:01)
--- NOTE | 2017-01-17 05:37 | NUR ---
PT MORE AAOX4 DENIES ANY PAIN AT THIS TIME NG TUBE DRAINING GREENISH TOTAL ROCK WORKER 500 ML
[2017-01-17] MEDS ORDERED: ALBUMIN HUMAN 25% 50 ML IV ONE ×2 (06:00→07:03)
--- NOTE | 2017-01-17 06:01 | NUR ---
DR KEITH CALLED TO BE INFORMED PT CONDITION AND ORDERS TO FOLLOW
[2017-01-17] MEDS ORDERED: KETOROLAC 30 MG/ML VIAL IVP PRN (06:40)
[2017-01-17] MEDS: ALBUTEROL SULFATE/IPRATROPIU 3 ML SOL IH SCH ×3 (06:59→18:43)
--- NOTE | 2017-01-17 07:02 | NUR ---
RECEIVED REPORT FROM JENNIFER RN. PT RESTING IN BED. NO S/S OF ACUTE DISTRESS. AAOX4. NG-TUBE NOTED TO THE RIGHT NARE. IV SITE PATENT AND INTACT. RIGHT UPPER ARM DOUBLE LUMEN PICC PATENT AND INTACT. TPN INFUSING WELL. DRESSING TO ABDOMEN NOTED, DRY AND INTACT. ABDOMINAL BINDER APPLIED PER MD. PT DENIES PAIN AT THIS TIME. CALL LIGHT WITHIN REACH. SAFETY MEASURES ENSURED. WILL CONTINUE TO MONITOR.
[2017-01-17] MEDS ORDERED: POTASSIUM CHL 20 MEQ/NACL 0.9% 1,000 ML IV SCH (07:05)
[2017-01-17 07:58] VITALS: BP 93/63
[2017-01-17] MEDS: LEVOFLOXACIN 750 MG/D5W PREMIX 150 ML IV SCH (09:49)
--- NOTE | 2017-01-17 09:50 | NUR ---
PT UP AND AMBULATING TO BATHROOM. AM MEDICATIONS GIVEN WITH EDUCATION. PT VERBALIZED UNDERSTANDING. NO S/S OF ACUTE DISTRESS. PT DENIES PAIN. WILL CONTINUE TO MONITOR.
[2017-01-17] MEDS ORDERED: NACL 0.9% 1,000 ML IV SCH (11:50)
--- NOTE | 2017-01-17 12:21 | NUR ---
PT BACK FROM AMBULATING TO BATHROOM. NO S/S OF ACUTE DISTRESS. PT DENIES PAIN. CALL LIGHT WITHIN REACH. SAFETY MEASURES ENSURED. WILL CONTINUE TO MONITOR.
[2017-01-17] MEDS ORDERED: ALBUMIN HUMAN 5 % 250 ML IV ONE (13:35)
--- NOTE | 2017-01-17 15:50 | NUR ---
PT SLEEING QUIETLY IN NAD, RESP EVEN UNLABORED, SKIN WARM DRY COLOR WNL, NGT REMAINS TO LOW INTERMITTENT SUCTION, SCD'S INPLACE, TPN AND ALBUMIN INFUSING, PICC SITE CLEAR, CALL BROWNING WITHIN REACH, BED LOCKED IN LOW POSITION, WILL COTINUET TO MONITOR
[2017-01-17 16:30] VITALS: BP 95/65
--- NOTE | 2017-01-17 19:10 | NUR ---
ENDORSED PLAN OF CARE TO NIGHT RN. PT REMAINS IN STABLE CONDITION.
--- NOTE | 2017-01-17 19:18 | NUR ---
NG-TUBE DRAINAGE 300 ML. Addendum: 01/17/17 at 1918 by Vanessa Fortune RN Amended: Links added.
--- NOTE | 2017-01-17 19:30 | NUR ---
RECEIVED REPORT FROM RUSS ALVA. PATIENT IS RESTING COMFORTABLY IN BED WITH NO SIGNS OF ACUTE DISTRESS OR SOB NOTED. THERE IS A DOUBLE LUMEN PICC LINE IN THE PATIENT'S RIGHT UPPER ARM RECEIVING TPN AT 50ML/HR. SITE IS DRY, INTACT, AND ASYMPTOMATIC. THERE IS AN NGT IN THE PATIENT'S RIGHT NARES ON LOW INTERMITTENT SUCTIONING WITH GREEN COLORED DRAINAGE NOTED. SCDS ARE NOTED, BUT NOT IN PLACE R/T PATIENT REMOVING THEM. WILL REINFORCE INDICATIONS AND BENEFITS TO PATIENT. INITIAL ASSESSMENT COMPLETED. CALL LIGHT WITHIN REACH. WILL CONTINUE TO MONITOR PATIENT.
[2017-01-17] MEDS ORDERED: DEXTROSE IV SCH (20:00)
[2017-01-17] MEDS ORDERED: [UNRECOGNIZED DRUG - OTHER] IV SCH (20:00)
[2017-01-17] MEDS ORDERED: AMINO ACIDS IV SCH (20:00)
[2017-01-17] MEDS ORDERED: MULTIVITAMIN IV SCH (20:00)
--- NOTE | 2017-01-17 20:24 | NUR ---
TOLERATED DUE MEDICATIONS. NO SIGNS OF SOB OR DISCOMFORT NOTED. PATIENT'S NEEDS MET AT THIS TIME. CALL LIGHT WITHIN PATIENT'S REACH. WILL CONTINUE TO MONITOR PATIENT.
--- NOTE | 2017-01-17 22:41 | NUR ---
PATIENT RESTING COMFORTABLY IN BED WITH NO S/S OF SOB OR DISTRESS NOTED. HOB AT 30 DEGREES WITH BED IN LOW POSITION. CALL LIGHT WITHIN PATIENT'S REACH. CONTINUE TO MONITOR PATIENT.
--- NOTE | 2017-01-17 23:43 | NUR ---
PATIENT RESTING IN BED, BUT CAN BE AROUSED BY NAME. VITAL SIGNS ARE STABLE. NO REPORTS OF PAIN OR DISCOMFORT AT THIS TIME.
--- NOTE | 2017-01-17 23:46 | NUR ---
PATIENT AMBULATED TO BATHROOM TO VOID. PATIENT'S GAIT IS STEADY WITH NO SIGNS OF SOB OR DISTRESS NOTED. CONTINUE TO MONITOR.
--- NOTE | 2017-01-17 23:50 | NUR ---
PATIENT SELF AMBULATED BACK INTO BED. CONNECTED PATIENT'S NASOGASTRIC TUBE FROM LOW INTERMITTENT SUCTIONING TO ELIZABETH BAG DRAINING TO GRAVITY. CHARGE NURSE CRISTINA RN AT BEDSIDE. EXPLAINED INDICATIONS AND BENEFITS OF SCDS FOR VTE PROTOCOL. PATIENT VERBALIZED UNDERSTANDING, BUT REFUSES TO WEAR THEM. WILL CONTINUE TO MONITOR.
[2017-01-18] VITALS: BP 98/56
--- NOTE | 2017-01-18 00:04 | NUR ---
450 ML OF GREENISH COLOR OUTPUT NOTED IN CANISTER FROM NGT LOW INTERMITTENT SUCTIONING.
[2017-01-18] MEDS: BLOOD GLUCOSE MONITORING 1 DEV DEV MC SCH ×5 (00:35→20:20)
[2017-01-18] MEDS: INSULIN LISPRO SLIDING SCALE 100 UNITS/ML VIAL SUBQ PRN ×5 (00:48→21:08)
--- NOTE | 2017-01-18 02:00 | NUR ---
ROUNDED ON PATIENT. PATIENT IS RESTING COMFORTABLY IN BED WTIH NO SIGNS OF DISTRESS NOTED. CALL LIGHT WITHIN REACH. WILL CONTINUE TO MONITOR PATIENT.
--- NOTE | 2017-01-18 04:07 | NUR ---
PATIENT SLEEPING IN BED WITH NO SIGNS OF SOB OR DISTRESS NOTED. CALL LIGHT WITHIN REACH. WILL CONTINUE TO MONITOR PATIENT.
[2017-01-18] MEDS: METOCLOPRAMIDE 10 MG/2 ML INJ VIAL IVP SCH ×3 (04:20→20:11)
[2017-01-18] MEDS: CLINDAMYCIN 600 MG in DEXTROSE 5% 50 ML IV SCH (04:20)
--- NOTE | 2017-01-18 05:35 | NUR ---
DR. KEITH CALLED TO ASK HOW MUCH GASTRIC OUTPUT WAS OBTAINED IN ELIZABETH BAG. TOLD MD NO OUTPUT. DR. KEITH ASKED TO PUT PATIENT ON HIGH CONTINUOUS SUCTIONING FOR 2 TO 3 MINUTES VIA NGT AND THEN PUT NGT TO LOW INTERMITTENT SUCTIONING. WILL FOLLOW UP WITH DOCTOR'S ORDERS.
--- NOTE | 2017-01-18 05:45 | NUR ---
CHARGE NURSE CRISTINA RN AT BEDSIDE TO RECONNECT PATIENT TO INTERMITTENT SUCTIONING. PUT SUCTIONING ON HIGH INTERMITTENT SUCTIONING FOR 2 TO 3 MINUTES AND 50ML OF GREEN COLORED GASTRIC OUTPUT NOTED. PATIENT PLACED BACK ON LOW INTERMITTENT SUCTIONING PER DOCTOR'S ORDERS. WILL CONTINUE TO MONITOR.
[2017-01-18] MEDS: ALBUTEROL SULFATE/IPRATROPIU 3 ML SOL IH SCH ×3 (06:50→18:45)
[2017-01-18] MEDS ORDERED: NACL 0.9% 500 ML IV SCH (06:50)
--- NOTE | 2017-01-18 07:07 | NUR ---
CRITICAL LAB VALUES RECEIVED. GLUCOSE 657 AND POTASSIUM IS 5.7. ENDORSED TO AUNDREA ALVA AND BISI RN TO HAVE LABS REDRAWN RELATED TO PATIENT RECEIVING TPN.
--- NOTE | 2017-01-18 07:17 | NUR ---
PATIENT IN STABLE CONDITION. ALL NEEDS ATTENDED TO DURING SHIFT. ENDORSED CONTINUITY OF CARE TO AUNDREA ALVA AND BISI ALVA.
--- NOTE | 2017-01-18 07:30 | NUR ---
RECEIVED REPORT FROM NIGHT NURSE. PT AOX4, RESTING IN BED. NG TO RIGHT NARES TO INTERMITTENT LOW WALL SUCTION. PT DENIES PAIN, NAUSEA, CP OR SOB. NO S/S OF ACUTE DISTRESS. PICC SITE ASYMPTOMATIC, PATENT AND INTACT. TPN INFUSING WELL. DISCUSSED AND REVIEWED PLAN OF CARE WITH PT. PT VERBALIZES UNDERSTANDING. ASSISTED PT TO THE RESTROOM, PT OBSERVED TO HAVE STEADY GAIT. SAFETY MEASURES ENSURED. CALL LIGHT WITHIN REACH. WILL CONTINUE TO MONITOR.
[2017-01-18 08:00] VITALS: BP 90/58
[2017-01-18] MEDS: POTASSIUM CHL 20 MEQ/NACL 0.9% 1,000 ML IV SCH ×2 (08:37→16:49)
--- NOTE | 2017-01-18 09:20 | NUR ---
DR KEITH IN TO SEE PT. ORDERS PENDING. CONDITION STABLE. SAFETY MEASURES ENSURED. WILL CONTINUE TO MONITOR.
--- NOTE | 2017-01-18 09:40 | NUR ---
NG TUBE REMOVED PER MD. PT TOLERATED WELL. PT DENIES PAIN, NO S/S OF ACUTE DISTRESS. CONDITION STABLE. WILL CONTINUE TO MONITOR.
[2017-01-18] MEDS: LEVOFLOXACIN 750 MG/D5W PREMIX 150 ML IV SCH (10:01)
[2017-01-18] MEDS: metroNIDAZOLE 500 MG/NS PREMIX 100 ML IV SCH ×2 (12:32→20:11)
--- NOTE | 2017-01-18 12:32 | NUR ---
PT REFUSED HHN TX. ADVISED PT TO LET THE NURSE KNOW IF SHE FEELS SOB. PT VERBALIZED UNDERSTANDING. NO SOB OR DISTRESS NOTED. WILL CONTINUE TO MONITOR.
[2017-01-18] MEDS ORDERED: CLINDAMYCIN 600 MG in DEXTROSE 5% 50 ML IV SCH (13:00)
--- NOTE | 2017-01-18 13:50 | NUR ---
01/18/17 RD FOLLOW UP COMPLETED PLEASE REFER TO NUTRITION PROGRESS NOTE UNDER CARE ACTIVITY FOR ESTIMATED NUTRITION NEEDS. RD RECOMMENDATIONS: 1. CONTINUE PPN D 10%, AA 4.25% AT 50 ML/HR, WITH 10% LIPIDS AT 240 ML VIA CENTRAL LINE PER MD/PHARMACIST 2. CONTINUE CLEAR LIQUID DIET TOLERATED AND SLOWLY ADVANCE TO CCHO 60 GM. 3. WHEN PT TOLERATING CCHO 60 GM DIET PLEASE D/C PPN. 4. RD WILL F/U 2-3 DAYS; HIGH RISK. YANY SANDERSON RD
--- NOTE | 2017-01-18 14:00 | NUR ---
PT IS RESTING COMFORTABLY. ASKED PT HOW SHE IS DOING. NO COMPLAINTS OF NAUSEA OR ABDOMINAL PAIN AFTER EATING A LIQUID DIET. PT TOLERATED WELL. PER PT, PT IS READY TO EAT MORE. WILL TALK TO DR ABOUT INCREASING DIET.
--- NOTE | 2017-01-18 15:00 | NUR ---
PT OBSERVED AMBULATING INDEPENDENTLY WITH STEADY GAIT. NO C/O OF DIZZINESS OR FATIGUE. SAFETY MEASURES ENSURED. WILL CONTINUE TO MONITOR.
[2017-01-18 16:00] VITALS: BP 97/57
--- NOTE | 2017-01-18 16:30 | NUR ---
PT FAMILY AT BEDSIDE. ALL NEEDS MET. SAFETY MEASURES ENSURED. WILL CONTINUE TO MONITOR.
--- NOTE | 2017-01-18 18:32 | NUR ---
PT ATE 50% OF FULL LIQUID DIET FOR DINNER. NO C/O NAUSEA OR VOMITING. PT TOLERATED WELL. ALL NEEDS MET. SAFETY MEASURES ENSURED. WILL CONTINUE TO MONITOR.
--- NOTE | 2017-01-18 19:25 | NUR ---
ENDORSED PT TO THE STOCK CAR DRIVER NURSE AT BEDSIDE FOR CONTINUITY OF CARE. PT IS RESTING COMFORTABLY. C/O OF SLIGHT DAIGLE D/T THE RESPIRATORY TX. BRIAN WILL TAKE OVER.
--- NOTE | 2017-01-18 19:26 | NUR ---
RECEIVED REPORT FROM DAY RN FOR CONTINUITY OF CARE. PATIENT IS A&OX4, DISCUSSED PLAN OF CARE WITH PATIENT, VERBALIZED UNDERSTANDING. SHIFT ASSESSMENT DONE, VS TAKEN, STABLE. PATIENT C/O HEADACHE WILL MEDICATE PER MD ORDER. NO S/S OF RESPIRATORY DISTRESS NOTED ON ROOM AIR. PT HAS PICC LINE TO RT UPPER ARM PATENT AND INFUSING TPN AND FLUIDS WELL. ABDOMINAL DRESSING IS DRY AND INTACT, NO DRAINAGE NOTED. SAFETY PRECAUTIONS ENFORCED. PT REFUSED SCDS AT THIS TIME. CALL LIGHT PLACED WITHIN REACH. WILL CONTINUE TO MONITOR.
[2017-01-18 20:00] VITALS: BP 104/63
[2017-01-18] MEDS ORDERED: DEXTROSE IV SCH (20:00)
[2017-01-18] MEDS ORDERED: MULTIVITAMIN IV SCH (20:00)
[2017-01-18] MEDS ORDERED: AMINO ACIDS IV SCH (20:00)
[2017-01-18] MEDS ORDERED: [UNRECOGNIZED DRUG - OTHER] IV SCH (20:00)
--- NOTE | 2017-01-18 20:11 | NUR ---
DUE MEDICATIONS ADMINISTERED, TOLERATED WELL. PT GIVEN TYLENOL FOR HEADACHE. TPN DISCONTINUED PER MD ORDER. CALL LIGHT WITHIN REACH.
[2017-01-19] VITALS: BP 96/52
--- NOTE | 2017-01-19 00:02 | NUR ---
VS TAKEN, STABLE. PATIENT AMBULATED TO RESTROOM, VOIDED. PT ATE SNACK AND FLUIDS PER FULL LIQUID DIET, TOLERATED WELL. CALL LIGHT WITHIN REACH.
[2017-01-19] MEDS: POTASSIUM CHL 20 MEQ/NACL 0.9% 1,000 ML IV SCH ×2 (00:54→05:51)
--- NOTE | 2017-01-19 01:42 | NUR ---
PT AMBULATING IN HALLWAY X3, TOLERATING WELL. WILL CONTINUE TO MONITOR.
[2017-01-19] MEDS: METOCLOPRAMIDE 10 MG/2 ML INJ VIAL IVP SCH ×2 (04:02→12:25)
[2017-01-19] MEDS: metroNIDAZOLE 500 MG/NS PREMIX 100 ML IV SCH ×2 (04:02→12:25)
--- NOTE | 2017-01-19 04:02 | NUR ---
DUE ANTIBIOTICS ADMINISTERED. PT AMBULATED TO RESTROOM. NO S/S OF DISTRESS NOTED. WILL CONTINUE TO MONITOR.
[2017-01-19] MEDS: BLOOD GLUCOSE MONITORING 1 DEV DEV MC SCH ×3 (05:51→16:50)
--- NOTE | 2017-01-19 05:52 | NUR ---
BLOOD SUGAR 204, WILL ADMINISTER INSULIN PER MD ORDER. CALL LIGHT WITHIN REACH.
[2017-01-19] MEDS: INSULIN LISPRO SLIDING SCALE 100 UNITS/ML VIAL SUBQ PRN ×2 (06:11→12:21)
[2017-01-19] MEDS: ALBUTEROL SULFATE/IPRATROPIU 3 ML SOL IH SCH ×2 (07:01→12:50)
--- NOTE | 2017-01-19 07:04 | NUR ---
PT REFUSED BREATHING TX AT THIS TIME. EXPLAINED BENEFITS OF TX PT STILL REFUSED. PT STATES BREATHING TX GIVES HER A HEADACHE. WILL MAKE NURSE AWARE. SPO2 99% ON RA. B.S CLEAR BILATERALLY.
--- NOTE | 2017-01-19 07:14 | NUR ---
ENDORSED PATIENT TO DAY RN FOR CONTINUITY OF CARE, PATIENT IS IN STABLE CONDITION.
--- NOTE | 2017-01-19 07:15 | NUR ---
RECEIVED REPORT FROM THE SENIOR MEDICAL WRITER NURSE. PT IS AWAKE AND ORIENTED. I REINTRODUCED MYSELF AND UPDATED THE BOARD. PER PT, PT SLEPT FINE. SHE IS FEELING BETTER AND WOULD LIKE TO GO HOME. PER MD, SHE NEEDS TO PASS GAS OR HAVE A BM TODAY. SHE STATED THAT AFTER BREAKFAST, SHE WILL AMBULATE THE HALLS. NO SIGNS OF DISTRESS. NO COMPLAINTS. NOTED R UA-PICC LINE, NS WITH KCL 20MEQ AT 20ML/HR. NO MORE TPN. CALL LIGHT WITHIN REACH. WILL CONTINUE TO MONITOR PT.
[2017-01-19 08:00] VITALS: BP 95/65
--- NOTE | 2017-01-19 08:20 | NUR ---
PT AMBULATING THE HALLS. PT IS DOING WELL. NO SIGNS OF DISTRESS. PT STATES SHE ATE 80% OF HER BREAKFAST. TOLERATED WELL. DENIES NAUSEA. DENIES ABD PAIN. WILL CONTINUE TO MONITOR PT.
[2017-01-19] MEDS: LEVOFLOXACIN 750 MG/D5W PREMIX 150 ML IV SCH (09:53)
--- NOTE | 2017-01-19 09:57 | NUR ---
ADMINISTERED LEVAQUIN. INFUSING. PT TOLERATING WELL. SHE IS DOING HER MORNING ADLS. NO SIGNS OF DISTRESS. NO COMPLAINTS. PER PT, SHE WILL CONTINUE TO AMBULATE THROUGHOUT THE DAY. WILL CONTINUE TO MONITOR PT.
--- NOTE | 2017-01-19 12:15 | NUR ---
PT IN BED. RESTING COMFORTABLY. NO SIGNS OF DISTRESS. DENIES PAIN. WILL CONTINUE TO MONITOR.
--- NOTE | 2017-01-19 12:38 | NUR ---
PT ATE HER FULL LIQ DIET FOR LUNCH. PT STATES SHE WOULD LIKE TO TRY MORE. DR. PEREZ ORDERED A REG LUNCH TRAY. SHE WOULD LIKE A CHICKEN NOODLE SOUP AND CHICKEN SALAD SANDWICH. I PLACED ORDER TO [facility].
--- NOTE | 2017-01-19 12:50 | NUR ---
PT REFUSED BREATHING TX. PT NOT SOB AND NOT IN RESPIRATORY DISTRESS. PT REMAINS ON ROOM AIR, B.S CLEAR BILATERALLY.
--- NOTE | 2017-01-19 13:31 | NUR ---
PT EATING HER CHICKEN SALAD SANDWICH AND CHICKEN NOODLE SOUP. PT IS TOLERATING SOLIDS REALLY WELL. WILL CONTINUE TO MONITOR PT.
--- NOTE | 2017-01-19 15:00 | NUR ---
PT AMBULATING BACK AND FORTH IN THE [address]. NO SIGNS OF DISTRESS. NO COMPLAINTS.
[2017-01-19] MEDS ORDERED: MYLICON80 MG PO (15:42)
[2017-01-19] MEDS ORDERED: DOCUSATE SODIU100 M4 PO (15:45)
[2017-01-19] MEDS ORDERED: NORCO 325 MG-51 TAB PO (15:45)
[2017-01-19] MEDS ORDERED: REGLAN5 MG PO (15:58)
[2017-01-19 16:00] VITALS: BP 100/62
--- NOTE | 2017-01-19 16:00 | NUR ---
REMOVED PICC LINE AND TOOK PIC OF INCISION FOR DISCHARGE. WILL START D/C PAPERWORK. Addendum: 01/19/17 at 1738 by Danay Oliver RN PT TOLERATED WELL.
--- NOTE | 2017-01-19 17:00 | NUR ---
WENT OVER THE DISCHARGE INSTRUCTION WITH PT. ANSWERED ALL QUESTIONS. PT VERBALIZED UNDERSTANDING. PT SIGNED ALL DOCUMENTS. PT IS STABLE. PT WILL GET DRESSED AND GATHER HER PERSONAL BELONGINGS. WILL LET ME KNOW WHEN HER RIDE IS HERE. Addendum: 01/19/17 at 1742 by Danay Oliver RN REMOVED ALL ARM BANDS.
--- NOTE | 2017-01-19 17:25 | NUR ---
WALKED OUT PT TO THE LOBBY, WITH HER PERSONAL BELONGINGS, ACCOMPANIED BY HER MOM. PT REFUSED THE WHEELCHAIR. PT IS IN STABLE CONDITION.
== END 2017-01-19 17:25 | disposition home or self-care (01) | DRG 224 ==
LOC: MED 15:58 → MTU 20:17
PROVIDERS: ADMIT Family Medicine; ATTEND Family Medicine
PROC: 02HV33Z Insertion of Infusion Device into Superior Vena Cava, Percutaneous Approach (ICD-10-PCS; 2017-01-16)
PROC: B548ZZA Ultrasonography of Superior Vena Cava, Guidance (ICD-10-PCS; 2017-01-16)
PROC: 0DNA0ZZ Release Jejunum, Open Approach (ICD-10-PCS; principal; 2017-01-16 14:00)
DX: K56.60 Unspecified intestinal obstruction (principal); J69.0 Pneumonitis due to inhalation of food and vomit; E43 Unspecified severe protein-calorie malnutrition; K85.90 Acute pancreatitis without necrosis or infection, unspecified; J90 Pleural effusion, not elsewhere classified; R64 Cachexia; D68.69 Other thrombophilia; R18.8 Other ascites; K31.84 Gastroparesis; E11.65 Type 2 diabetes mellitus with hyperglycemia; E83.39 Other disorders of phosphorus metabolism; E87.6 Hypokalemia; E86.0 Dehydration; F34.1 Dysthymic disorder; F10.10 Alcohol abuse, uncomplicated; E83.42 Hypomagnesemia; D64.9 Anemia, unspecified; B88.8 Other specified infestations; E11.43 Type 2 diabetes mellitus with diabetic autonomic (poly)neuropathy; F14.10 Cocaine abuse, uncomplicated; Z87.891 Personal history of nicotine dependence; Z68.27 Body mass index [BMI] 27.0-27.9, adult

== ENCOUNTER 2017-06-29 15:03 | Emergency (ER) | payer SELFPAY ==
[~2017-06-29] VITALS: Ht 157.5 cm; Wt 61.9 kg
[~2017-06-29 15:03] MED LIST: ACET-2869 PO; DOCU100C5 PO; METO-485 PO; SIME80CT70 PO
[2017-06-29 15:09] VITALS: BP 128/85
[2017-06-29 16:03] LABS: BILIRUBIN,URINE NEGATIVE (NEGATIVE); BLOOD, URINE 2+ (NEGATIVE); LEUKOCYTE ESTERASE ,URINE NEGATIVE (NEGATIVE); NITRITE, URINE POSITIVE (NEGATIVE); PH,URINE 5.5 (5.0-9.0); UGLUCOSE 3+ (NEGATIVE)
[2017-06-29 16:04] LABS: APPEARANCE,URINE HAZY (CLEAR); COLOR,URINE STRAW (YELLOW)
[2017-06-29 16:22] LABS: RBC,URINE NONE SEEN /HPF (0-5); WBC,URINE 0-5 (RARE) /HPF (0-5); YEAST,URINE Rare /HPF (None Seen)
--- NOTE | 2017-06-29 18:10 | NUR ---
37F DROPPED OFF BY SISTER C/O 04/09 "SHARP" NON-RADIATING BL LOWER ABDOMINAL PAIN X YESTERDAY; PT DENIES N/V/D OR URINARY COMPLAINTS; SKIN IS PINK/WARM/DRY; AOX4 WITH EVEN AND STEADY GAIT; RR ARE EVEN AND UNLABORED; VSS; PATIENT POSITIONED FOR COMFORT; HOB ELEVATED; BED DOWN. ER MD MADE AWARE OF PT STATUS. ALL NEEDS MET AT THIS TIME.
[2017-06-29] MEDS ORDERED: KETOROLAC 60 MG/2 ML VIAL IM ONE (18:15)
--- NOTE | 2017-06-29 19:08 | NUR ---
Pt report given to Sivan ALVA. Transfer of care at this time.
--- NOTE | 2017-06-29 19:25 | NUR ---
Assumed care of pt. Cond stable. No distress noted. States pain 310 now.
--- NOTE | 2017-06-29 20:06 | NUR ---
Patient being evaluated by Dr. Murguia at bedside.
--- NOTE | 2017-06-29 20:08 | NUR ---
FEMALE CHAPERONED FOR DR. VARGHESE DURING PELVIC EXAM
[2017-06-29] MEDS ORDERED: INSULIN HUMAN REGULAR 100 UNITS/ML 10 ML VIAL IVP ONE (20:10)
[2017-06-29] MEDS ORDERED: NACL 0.9% 1,000 ML IV ONE (20:10)
[2017-06-29 20:22] LABS: BASOPHILS # (AUTO) 0.2 K/uL (0.00-0.22); BASOPHILS % (AUTO) 1.9 % (0.0-2.0); EOSINOPHILS # (AUTO) 0.1 K/uL (0-0.4); EOSINOPHILS % (AUTO) 1.4 % (0.0-4.0); HEMATOCRIT 36.6 % (36-48); HEMOGLOBIN 12.2 g/dL (12.0-16.0); LYMPHOCYTES # (AUTO) 3.7 K/uL (2.5-16.5); LYMPHOCYTES % (AUTO) 42.6 % (20.5-51.1); MEAN CORPUSCULAR HEMOGLOBIN 30 pg (27-31); MEAN CORPUSCULAR HGB CONC 33 g/dL (33-37); MEAN CORPUSCULAR VOLUME 89 fL (80-94); MONOCYTES # (AUTO) 0.6 K/uL (0.8-1.0); MONOCYTES % (AUTO) 6.5 % (1.7-9.3); NEUTROPHILS # (AUTO) 4.1 K/uL (1.8-7.7); NEUTROPHILS % (AUTO) 47.6 % (42.2-75.2); PLATELET COUNT (AUTO) 287 K/uL (140-450); RED BLOOD CELL COUNT(AUTO) 4.14 MIL/uL (4.20-5.40); RED CELL DISTRIBUTION WIDTH 12.4 % (11.6-13.7); WHITE BLOOD COUNT (AUTO) 8.7 K/uL (4.8-10.8)
[2017-06-29 20:28] LABS: ANION GAP 8.2 (8-16); CARBON DIOXIDE 28.4 mmol/L (21-32); CREATININE 0.7 mg/dL (0.6-1.3); POTASSIUM 3.6 mmol/L (3.5-5.1)
[2017-06-29 20:34] LABS: ALBUMIN 3.2 g/dL (3.4-5.0); TOTAL BILIRUBIN 0.3 mg/dL (0.0-1.0)
[2017-06-29 21:28] VITALS: BP 131/88
--- NOTE | 2017-06-29 21:28 | NUR ---
Patient discharged with v/s stable. Written and verbal after care instructions given and explained BY MD SMITH Patient alert, oriented and verbalized understanding of instructions. Ambulatory with steady gait. All questions addressed prior to discharge. ID band removed. IV SITE REMOVED, Patient advised to follow up with PMD. Rx of METFORMIN HYDROCHLORIDE given. Patient educated on indication of medication including possible reaction and side effects. Opportunity to ask questions provided and answered.
== END 2017-06-29 21:28 | disposition home or self-care (01) ==
LOC: MED 15:03
DX: E11.65 Type 2 diabetes mellitus with hyperglycemia (principal); N89.8 Other specified noninflammatory disorders of vagina; R03.0 Elevated blood-pressure reading, without diagnosis of hypertension
CPT/HCPCS: 36415; 80053; 81001; 81025; 82948; 85025; 87070; 87086; 87210; 96361; 96372; 96374; 99284; J1815; J1885; J7030

== ENCOUNTER 2020-06-16 13:05 | Emergency (ER) | payer SELFPAY ==
[~2020-06-16] VITALS: Ht 157.5 cm; Wt 60.3 kg
[~2020-06-16 13:05] MED LIST changes: -ACET-2869 PO; +HYDR-5122 PO; -SIME80CT70 PO; +SIME80TA22 PO
[2020-06-16 13:18] VITALS: BP 115/74
--- NOTE | 2020-06-16 13:24 | NUR ---
AMB TO BED 08
--- NOTE | 2020-06-16 13:37 | NUR ---
BS 455
[2020-06-16] MEDS ORDERED: INSULIN REGULAR, HUMAN 100 UNIT/ML VIAL IV ONE (13:40)
[2020-06-16] MEDS ORDERED: NACL 0.9% 2,000 ML IV ONE (13:40)
--- NOTE | 2020-06-16 14:00 | NUR ---
IV INSERTED, LABS DRAWN AND BOLUS STARTED
[2020-06-16 14:06] LABS: BASOPHILS # (AUTO) 0.1 K/uL (0.00-0.22); BASOPHILS % (AUTO) 0.6 % (0.0-2.0); EOSINOPHILS # (AUTO) 0.1 K/uL (0-0.4); EOSINOPHILS % (AUTO) 0.7 % (0.0-4.0); HEMATOCRIT 43.5 % (36-48); HEMOGLOBIN 14.8 g/dL (12.0-16.0); LYMPHOCYTES # (AUTO) 2.4 K/uL (2.5-16.5); LYMPHOCYTES % (AUTO) 27.9 % (20.5-51.1); MEAN CORPUSCULAR HEMOGLOBIN 32 pg (27-31); MEAN CORPUSCULAR HGB CONC 34 g/dL (33-37); MEAN CORPUSCULAR VOLUME 93.3 fL (80-94); MONOCYTES # (AUTO) 0.5 K/uL (0.8-1.0); MONOCYTES % (AUTO) 5.9 % (1.7-9.3); NEUTROPHILS # (AUTO) 5.6 K/uL (1.8-7.7); NEUTROPHILS % (AUTO) 64.9 % (42.2-75.2); PLATELET COUNT (AUTO) 314 K/uL (140-450); RED BLOOD CELL COUNT(AUTO) 4.66 MIL/uL (4.20-5.40); RED CELL DISTRIBUTION WIDTH 12.6 % (11.6-13.7); WHITE BLOOD COUNT (AUTO) 8.6 K/uL (4.8-10.8)
[2020-06-16 14:13] LABS: ACETONE, SERUM NEGATIVE (NEGATIVE)
[2020-06-16 14:24] LABS: ALBUMIN 3.9 g/dL (3.4-5.0); ASPARTATE AMINOTRANSFERASE 12 U/L (15-37); CARBON DIOXIDE 27.2 mmol/L (21-32); CHLORIDE 95 mmol/L (98-107); CREATININE 0.8 mg/dL (0.6-1.3); GFR ARICAN-AMERICAN 102 mL/min (>90); POTASSIUM 4.2 mmol/L (3.5-5.1); SODIUM SERUM 132 mmol/L (136-145); TOTAL BILIRUBIN 0.6 mg/dL (0.0-1.0); UREA NITROGEN, BLOOD 12 mg/dL (7-18)
[2020-06-16 14:27] LABS: GLUCOSE 474 mg/dL (74-106)
[2020-06-16] MEDS ORDERED: cefTRIAXone 1,000 MG VIAL ONE (14:46)
[2020-06-16 16:08] VITALS: BP 115/74
--- NOTE | 2020-06-16 16:09 | NUR ---
Patient discharged with v/s stable. Written and verbal after care instructions given and explained. Patient alert, oriented and verbalized understanding of instructions. Ambulatory with steady gait. All questions addressed prior to discharge. ID band removed. Patient advised to follow up with PMD. Rx of GLYBURIDE given. Patient educated on indication of medication including possible reaction and side effects. Opportunity to ask questions provided and answered.
== END 2020-06-16 16:09 | disposition home or self-care (01) ==
LOC: MED 13:05
DX: E11.621 Type 2 diabetes mellitus with foot ulcer (principal); I10 Essential (primary) hypertension
CPT/HCPCS: 36415; 73660; 80053; 82009; 85025; 85651; 86140; 96361; 96365; 96375; 99284; J0696; J1815; J7030; Q0092

== ENCOUNTER 2020-09-20 23:25 | Emergency (ER) | payer BC ==
[~2020-09-20] VITALS: Ht 157.5 cm; Wt 59.9 kg
[2020-09-20 23:26] VITALS: BP 103/64
--- NOTE | 2020-09-20 23:26 | NUR ---
PT SITTING IN CHAIR IN TENT - NO ACUTE DISTRESS NOTED. VSS. ERMD MADE AWARE OF PT STATUS.
[2020-09-21 00:45] VITALS: BP 103/64
--- NOTE | 2020-09-21 00:45 | NUR ---
PATIENT LEFT WITHOUT BEING SEEN BY DR. SORENSON. NO FURTHER CARE PROVIDED FOR PATIENT.
== END 2020-09-21 00:45 | disposition left against medical advice (07) ==
LOC: MED 23:25
DX: R06.02 Shortness of breath (principal); Z53.21 Procedure and treatment not carried out due to patient leaving prior to being seen by health care provider

== ENCOUNTER 2023-05-14 12:12 | Inpatient (IN) | payer BC, MEDICAID ==
[~2023-05-14] VITALS: Ht 157.5 cm; Wt 65.8 kg
[~2023-05-14 12:12] MED LIST changes: -SIME80TA22 PO; +SIME80TA41 PO
[2023-05-14 12:30] VITALS: BP 123/71; PULSE 74; RESP 17; TEMP 97.4; O2SAT 98
[2023-05-14 13:19] LABS: BASOPHILS % (AUTO) 0.3 % (0.0-2.0); EOSINOPHILS # (AUTO) 0.1 K/uL (0-0.4); EOSINOPHILS % (AUTO) 0.4 % (0.0-4.0); HEMATOCRIT 36.4 % (36-48); HEMOGLOBIN 12.3 g/dL (12.0-16.0); LYMPHOCYTES % (AUTO) 13.8 % (20.5-51.1); MEAN CORPUSCULAR HEMOGLOBIN 30 pg (27-31); MEAN CORPUSCULAR HGB CONC 34 g/dL (33-37); MEAN CORPUSCULAR VOLUME 88.5 fL (80-94); MONOCYTES % (AUTO) 7.2 % (1.7-9.3); NEUTROPHILS # (AUTO) 11.4 K/uL (1.8-7.7); NEUTROPHILS % (AUTO) 78.3 % (42.2-75.2); PLATELET COUNT (AUTO) 254 K/uL (140-450); RED BLOOD CELL COUNT(AUTO) 4.11 MIL/uL (4.20-5.40); RED CELL DISTRIBUTION WIDTH 13.2 % (11.6-13.7); WHITE BLOOD COUNT (AUTO) 14.5 K/uL (4.8-10.8)
[2023-05-14 13:44] LABS: APPEARANCE,URINE CLEAR (CLEAR); BILIRUBIN,URINE NEGATIVE (NEGATIVE); BLOOD, URINE NEGATIVE (NEGATIVE); COLOR,URINE YELLOW (YELLOW); LEUKOCYTE ESTERASE ,URINE NEGATIVE (NEGATIVE); NITRITE, URINE NEGATIVE (NEGATIVE); PROTEIN,URINE NEGATIVE (NEGATIVE); UGLUCOSE 3+ (NEGATIVE); UROBILINOGEN,URINE 0.2 EU/dL (0.2 - 1)
[2023-05-14] MEDS ORDERED: NACL 0.9% 1,000 ML IV ONE (13:55)
[2023-05-14] MEDS ORDERED: KETOROLAC 30 MG/ML VIAL IVP ONE (13:55)
[2023-05-14 14:00] LABS: ALBUMIN 3.3 g/dL (3.4-5.0); ANION GAP 13.9 (8-16); CALCIUM 8.6 mg/dL (8.5-10.1); CARBON DIOXIDE 24.9 mmol/L (21-32); CREATININE 0.7 mg/dL (0.6-1.3); POTASSIUM 3.8 mmol/L (3.5-5.1); TOTAL PROTEIN, SERUM 7.2 g/dL (6.4-8.2)
[2023-05-14] MEDS ORDERED: PIPERACILLIN/TAZOBACTAM 3.375 GM in DEXTROSE 5% 50 ML IV ONE (14:55)
[2023-05-14] MEDS ORDERED: PIPERACILLIN/TAZOBACTAM 3.375 GM VIAL IV ONE ×2 (14:57→20:26)
[2023-05-14 15:11] VITALS: O2SAT 98
[2023-05-14] MEDS ORDERED: MORPHINE SULFATE 4 MG/ML SYR IVP ONE (16:05)
[2023-05-14] MEDS ORDERED: ONDANSETRON 4 MG/2 ML VIAL ONE ×2 (16:17→21:00)
[2023-05-14] MEDS ORDERED: ONDANSETRON 4 MG/2 ML VIAL IVP ONE ×2 (16:25→16:30)
[2023-05-14] MEDS ORDERED: HYDROcodone/APAP 5/325 MG 1 TAB TAB PO PRN (17:05)
[2023-05-14 17:11] VITALS: O2SAT 98
[2023-05-14 19:00] VITALS: PULSE 77; RESP 18; O2SAT 98
[2023-05-14] MEDS ORDERED: MORPHINE SULFATE 4 MG/ML SYR IV PRN (20:00)
[2023-05-14] MEDS: PIPERACILLIN/TAZOBACTAM 3.375 GM in DEXTROSE 5% 50 ML IV SCH ×2 (20:44→20:57)
[2023-05-14] MEDS ORDERED: DEFEROXAMINE 500 MG VIAL ONE (21:00)
[2023-05-14] MEDS ORDERED: DEXAMETHASONE 4 MG/ML VIAL ONE (21:00)
[2023-05-14] MEDS ORDERED: SUGAMMADEX SODIUM 200 MG/2 ML VIAL IV ONE (21:00)
[2023-05-14] MEDS ORDERED: HYDROmorphone 1 MG/ML AMP ONE (21:00)
[2023-05-14] MEDS ORDERED: KETOROLAC 30 MG/ML VIAL ONE (21:00)
[2023-05-14] MEDS ORDERED: SUCCINYLCHOLINE CHLORIDE 200 MG/10 ML VIAL IVP ONE (21:00)
[2023-05-14] MEDS ORDERED: PROPOFOL 200 MG/20 ML VIAL IV ONE (21:00)
[2023-05-14] MEDS ORDERED: ROCURONIUM 50 MG/5 ML VIAL IV ONE (21:00)
[2023-05-14] MEDS ORDERED: fentaNYL citrate 0.05 MG/ML - 50mL vial IV ONE (21:00)
[2023-05-14] MEDS ORDERED: BUPIVACAINE-MPF 0.25% 30 ML VIAL INJ ONE (21:44)
[2023-05-14] MEDS ORDERED: LIDOCAINE/EPI MPF 1%1:200000 30 ML VIAL INJ ONE (21:44)
[2023-05-14] MEDS ORDERED: BLOOD GLUCOSE MONITORING 1 DEV DEV FS ONE (23:15)
[2023-05-14] MEDS ORDERED: HYDROmorphone 1 MG/ML AMP IVP PRN (23:15)
[2023-05-14] MEDS ORDERED: ONDANSETRON 4 MG/2 ML VIAL IVP PRN (23:15)
[2023-05-15 04:10] VITALS: PULSE 111
[2023-05-15] MEDS: PIPERACILLIN/TAZOBACTAM 3.375 GM in DEXTROSE 5% 50 ML IV SCH ×2 (06:15→12:24)
[2023-05-15 06:18] LABS: BASOPHILS % (AUTO) 0.3 % (0.0-2.0); HEMATOCRIT 33.5 % (36-48); HEMOGLOBIN 11.2 g/dL (12.0-16.0); LYMPHOCYTES # (AUTO) 0.8 K/uL (2.5-16.5); MEAN CORPUSCULAR HEMOGLOBIN 31 pg (27-31); MEAN CORPUSCULAR HGB CONC 34 g/dL (33-37); MONOCYTES # (AUTO) 0.1 K/uL (0.8-1.0); MONOCYTES % (AUTO) 1.1 % (1.7-9.3); NEUTROPHILS # (AUTO) 10.4 K/uL (1.8-7.7); NEUTROPHILS % (AUTO) 91.6 % (42.2-75.2); PLATELET COUNT (AUTO) 221 K/uL (140-450); RED BLOOD CELL COUNT(AUTO) 3.68 MIL/uL (4.20-5.40); RED CELL DISTRIBUTION WIDTH 13.2 % (11.6-13.7); WHITE BLOOD COUNT (AUTO) 11.3 K/uL (4.8-10.8)
[2023-05-15 06:27] LABS: ALBUMIN 2.7 g/dL (3.4-5.0); ANION GAP 13.9 (8-16); CALCIUM 7.4 mg/dL (8.5-10.1); CARBON DIOXIDE 21.4 mmol/L (21-32); CREATININE 0.6 mg/dL (0.6-1.3); POTASSIUM 4.3 mmol/L (3.5-5.1); TOTAL PROTEIN, SERUM 6.3 g/dL (6.4-8.2)
[2023-05-15] MEDS ORDERED: DEXTROSE 50% 50 ML SYR IVP PRN (06:45)
[2023-05-15] MEDS: BLOOD GLUCOSE MONITORING 1 DEV DEV FS SCH ×2 (07:07→11:45)
[2023-05-15] MEDS: INSULIN LISPRO SLIDING SCALE 100 UNITS/ML VIAL SUBQ PRN ×2 (07:09→11:46)
[2023-05-15 08:00] VITALS: BP 88/49; PULSE 77; PULSE 93; PULSE 94; RESP 18; TEMP 98.3; O2SAT 99
[2023-05-15 09:20] VITALS: BP 110/68; PULSE 101; RESP 18; TEMP 97.5; O2SAT 98
[2023-05-15] MEDS ORDERED: METR-520 PO (10:45)
[2023-05-15] MEDS ORDERED: DOCU-299 PO (10:45)
[2023-05-15] MEDS ORDERED: LACT500C2 PO (10:45)
[2023-05-15] MEDS ORDERED: IBUP-2213 PO (10:45)
[2023-05-15 12:00] VITALS: BP 115/67; PULSE 98; RESP 18; TEMP 97.9; O2SAT 100
== END 2023-05-15 13:28 | disposition home or self-care (01) | DRG 710 ==
LOC: MED 12:12 → MMU 17:13 → MTU 17:50
PROC: 0DN84ZZ Release Small Intestine, Percutaneous Endoscopic Approach (ICD-10-PCS; 2023-05-14)
PROC: 0DNU4ZZ Release Omentum, Percutaneous Endoscopic Approach (ICD-10-PCS; 2023-05-14)
PROC: 0DTJ4ZZ Resection of Appendix, Percutaneous Endoscopic Approach (ICD-10-PCS; principal; 2023-05-14 21:00)
DX: A41.9 Sepsis, unspecified organism (principal); K85.90 Acute pancreatitis without necrosis or infection, unspecified; K56.609 Unspecified intestinal obstruction, unspecified as to partial versus complete obstruction; E44.1 Mild protein-calorie malnutrition; E87.1 Hypo-osmolality and hyponatremia; I95.9 Hypotension, unspecified; E11.65 Type 2 diabetes mellitus with hyperglycemia; D64.9 Anemia, unspecified; K35.80 Unspecified acute appendicitis; F10.90 Alcohol use, unspecified, uncomplicated; K66.0 Peritoneal adhesions (postprocedural) (postinfection); F14.90 Cocaine use, unspecified, uncomplicated; F32.A Depression, unspecified; T38.3X6A Underdosing of insulin and oral hypoglycemic [antidiabetic] drugs, initial encounter; Y92.89 Other specified places as the place of occurrence of the external cause; Z98.891 History of uterine scar from previous surgery; Z68.26 Body mass index [BMI] 26.0-26.9, adult
CPT/HCPCS: 36415; 80053; 81003; 82374; 82948; 83605; 83690; 84703; 85025; 87040; 88304; 96374; 96375; 99285; J0330; J0895; J1100; J1170; J1815; J1885; J2001; J2270; J2405; J2543; J2704; J3010; J3490; J7030; J7060; Q9967

== ENCOUNTER 2024-04-16 09:39 | Emergency (ER) | payer MEDICAID, OTHER ==
[~2024-04-16] VITALS: Ht 154.9 cm; Wt 59.0 kg
[~2024-04-16 09:39] MED LIST changes: +DOCU-299 PO; -DOCU100C5 PO; -HYDR-5122 PO; +IBUP-2213 PO; +LACT1CAP67 PO; -METO-485 PO; +METR-520 PO; -SIME80TA41 PO
[2024-04-16 10:11] VITALS: BP 112/100; PULSE 103; RESP 20; TEMP 98; O2SAT 100
[2024-04-16] MEDS ORDERED: ACET-8905 PO (10:33)
[2024-04-16] MEDS ORDERED: IBUP-2213 PO (10:33)
[2024-04-16 10:43] VITALS: BP 112/100; PULSE 103; RESP 20; TEMP 98; O2SAT 100
[2024-04-16] MEDS: MORPHINE SULFATE 4 MG/ML SYR IM ONE (10:51)
== END 2024-04-16 10:43 | disposition home or self-care (01) ==
LOC: MED 09:39
DX: L97.519 Non-pressure chronic ulcer of other part of right foot with unspecified severity (principal); M79.661 Pain in right lower leg; M79.674 Pain in right toe(s); K12.1 Other forms of stomatitis; R03.0 Elevated blood-pressure reading, without diagnosis of hypertension; E11.9 Type 2 diabetes mellitus without complications; Z98.890 Other specified postprocedural states; Z79.1 Long term (current) use of non-steroidal anti-inflammatories (NSAID); Z79.899 Other long term (current) drug therapy
CPT/HCPCS: 96372; 99283; J2270

== ENCOUNTER 2024-04-19 19:20 | Inpatient (IN) | payer OTHER ==
[~2024-04-19] VITALS: Ht 154.9 cm; Wt 59.0 kg
[~2024-04-19 19:20] MED LIST changes: +ACET-8905 PO
[2024-04-19 19:31] VITALS: BP 156/82; PULSE 125; RESP 16; TEMP 100.1; O2SAT 100
[2024-04-19 20:11] LABS: BASOPHILS % (AUTO) 0.2 % (0.0-2.0); HEMATOCRIT 32.4 % (36-48); HEMOGLOBIN 10.7 g/dL (12.0-16.0); LYMPHOCYTES # (AUTO) 0.7 K/uL (2.5-16.5); MEAN CORPUSCULAR HEMOGLOBIN 29 pg (27-31); MEAN CORPUSCULAR HGB CONC 33 g/dL (33-37); MEAN CORPUSCULAR VOLUME 88.2 fL (80-94); MONOCYTES % (AUTO) 6.4 % (1.7-9.3); NEUTROPHILS # (AUTO) 13.9 K/uL (1.8-7.7); NEUTROPHILS % (AUTO) 88.6 % (42.2-75.2); PLATELET COUNT (AUTO) 339 K/uL (140-450); RED BLOOD CELL COUNT(AUTO) 3.68 MIL/uL (4.20-5.40); WHITE BLOOD COUNT (AUTO) 15.7 K/uL (4.8-10.8)
[2024-04-19] MEDS: NACL 0.9% 1,500 ML IV ONE (20:13)
[2024-04-19 20:15] LABS: LYMPHOCYTES % (AUTO) 4.8 % (20.5-51.1)
[2024-04-19] MEDS ORDERED: cefTRIAXone 1,000 MG VIAL ONE (20:15)
[2024-04-19] MEDS: ONDANSETRON 4 MG/2 ML VIAL IVP ONE (20:16)
[2024-04-19] MEDS: MORPHINE SULFATE 4 MG/ML SYR IVP ONE (20:18)
[2024-04-19] MEDS: ACETAMINOPHEN EXTRA STRENGTH 500 MG TAB PO ONE (20:18)
[2024-04-19 20:26] LABS: ALBUMIN 2.9 g/dL (3.4-5.0); BILIRUBIN,DIRECT 0.2 mg/dL (0.0-0.3); TOTAL BILIRUBIN 0.7 mg/dL (0.0-1.0); TOTAL PROTEIN, SERUM 8.2 g/dL (6.4-8.2)
[2024-04-19 20:32] LABS: LACTIC ACID 3.5 mmol/L (0.4-2.0)
[2024-04-19 20:36] LABS: ANION GAP 12.3 (8-16); CALCIUM 9.2 mg/dL (8.5-10.1); CARBON DIOXIDE 28.6 mmol/L (21-32); CREATININE 1.2 mg/dL (0.6-1.3); POTASSIUM 3.9 mmol/L (3.5-5.1)
[2024-04-19 21:00] VITALS: O2SAT 98
[2024-04-19 21:07] LABS: APPEARANCE,URINE CLEAR (CLEAR); BILIRUBIN,URINE NEGATIVE (NEGATIVE); BLOOD, URINE TRACE-I (NEGATIVE); COLOR,URINE YELLOW (YELLOW); LEUKOCYTE ESTERASE ,URINE NEGATIVE (NEGATIVE); NITRITE, URINE POSITIVE (NEGATIVE); PROTEIN,URINE NEGATIVE (NEGATIVE); UGLUCOSE 3+ (NEGATIVE); UROBILINOGEN,URINE 0.2 EU/dL (0.2 - 1)
[2024-04-19] MEDS ORDERED: VANCOMYCIN 1,000 MG VIAL ONE (21:08)
[2024-04-19] MEDS: VANCOMYCIN 1,000 MG in DEXTROSE 5% 250 ML IV ONE (21:11)
[2024-04-19] MEDS: INSULIN LISPRO 100 UNITS/ML VIAL SUBQ ONE (21:17)
[2024-04-19 21:27] LABS: BACTERIA,URINE 10-30 (MOD) /HPF (None Seen); MUCUS,URINE None Seen /LPF (None Seen); RBC,URINE 0-5 /HPF (0-5); SQUAMOUS EPITHELIAL CELL,UR 4-10 (MOD) /LPF (0-3 (FEW)); TRICHOMONAS,URINE None Seen /HPF (None Seen); YEAST,URINE None Seen /HPF (None Seen)
[2024-04-19 21:28] LABS: WHITE BLOOD CELL CASTS,URINE None Seen /LPF (None Seen)
[2024-04-19] MEDS ORDERED: VANCOMYCIN PER PHARMACY MC PRN (21:35)
[2024-04-19] MEDS: NACL 0.9% 1,000 ML IV SCH (23:52)
[2024-04-19] MEDS ORDERED: GLIP5TER PO (23:58)
[2024-04-20] VITALS (7 sets, daily range): BP systolic 95–150; BP diastolic 42–93; PULSE 100–105; RESP 18; TEMP 98–103; O2SAT 98–99
[2024-04-20] MEDS: HYDROcodone/APAP 5/325 MG 1 TAB TAB PO PRN (00:54)
[2024-04-20] MEDS: ACETAMINOPHEN 325 MG TAB PO PRN (08:23)
[2024-04-20] MEDS: DOCUSATE SODIUM 100 MG GELCAP PO SCH (08:25)
[2024-04-20 09:11] LABS: BASOPHILS % (AUTO) 0.3 % (0.0-2.0); EOSINOPHILS % (AUTO) 0.3 % (0.0-4.0); HEMATOCRIT 32.2 % (36-48); HEMOGLOBIN 10.8 g/dL (12.0-16.0); LYMPHOCYTES % (AUTO) 7.8 % (20.5-51.1); MEAN CORPUSCULAR HEMOGLOBIN 29 pg (27-31); MEAN CORPUSCULAR HGB CONC 33 g/dL (33-37); MONOCYTES # (AUTO) 0.9 K/uL (0.8-1.0); NEUTROPHILS % (AUTO) 84.6 % (42.2-75.2); PLATELET COUNT (AUTO) 347 K/uL (140-450); RED BLOOD CELL COUNT(AUTO) 3.66 MIL/uL (4.20-5.40); RED CELL DISTRIBUTION WIDTH 13.1 % (11.6-13.7)
[2024-04-20] MEDS: MORPHINE SULFATE 4 MG/ML SYR IVP PRN (09:20)
[2024-04-20 09:34] LABS: ALBUMIN 2.6 g/dL (3.4-5.0); ANION GAP 11.6 (8-16); CALCIUM 8.5 mg/dL (8.5-10.1); CARBON DIOXIDE 28.1 mmol/L (21-32); CREATININE 0.7 mg/dL (0.6-1.3); MAGNESIUM 1.6 mg/dL (1.8-2.4); POTASSIUM 3.7 mmol/L (3.5-5.1); TOTAL BILIRUBIN 0.8 mg/dL (0.0-1.0); TOTAL PROTEIN, SERUM 7.8 g/dL (6.4-8.2)
[2024-04-20] MEDS ORDERED: DEXTROSE 50% 50 ML SYR IVP PRN (09:45)
[2024-04-20] MEDS: INSULIN LISPRO SLIDING SCALE 100 UNITS/ML VIAL SUBQ PRN (10:07)
[2024-04-20] MEDS: VANCOMYCIN HCL 750 MG in NACL 0.9% 250 ML IV SCH (11:45)
[2024-04-20] MEDS: BLOOD GLUCOSE MONITORING 1 DEV DEV FS SCH (11:54)
[2024-04-20] MEDS: MAGNESIUM OXIDE 400 MG TAB PO PRN (11:59)
[2024-04-20] MEDS: CLINDAMYCIN 600MG/D5W PM 50 ML IV SCH (17:40)
[2024-04-20] MEDS ORDERED: CLINDAMYCIN 600 MG in DEXTROSE 5% 50 ML IV SCH (18:00)
[2024-04-20] MEDS: IBUPROFEN 800 MG TAB PO ONE (18:32)
[2024-04-20] MEDS: MEDS-TO-BEDS MC SCH (20:18)
[2024-04-20] MEDS: PIPERACILLIN/TAZOBACTAM 3.375 GM in DEXTROSE 5% 50 ML IV SCH (21:12)
[2024-04-21] VITALS (12 sets, daily range): BP systolic 65–165; BP diastolic 34–99; PULSE 75–112; RESP 15–20; TEMP 97.1–99.8; O2SAT 97–100
[2024-04-21 05:57] LABS: BASOPHILS # (AUTO) 0.1 K/uL (0.00-0.22); BASOPHILS % (AUTO) 0.3 % (0.0-2.0); EOSINOPHILS % (AUTO) 0.1 % (0.0-4.0); HEMOGLOBIN 10.1 g/dL (12.0-16.0); LYMPHOCYTES # (AUTO) 1.7 K/uL (2.5-16.5); LYMPHOCYTES % (AUTO) 10.6 % (20.5-51.1); MEAN CORPUSCULAR HEMOGLOBIN 29 pg (27-31); MEAN CORPUSCULAR HGB CONC 34 g/dL (33-37); MEAN CORPUSCULAR VOLUME 87.5 fL (80-94); MONOCYTES # (AUTO) 1.4 K/uL (0.8-1.0); MONOCYTES % (AUTO) 8.5 % (1.7-9.3); NEUTROPHILS % (AUTO) 80.5 % (42.2-75.2); PLATELET COUNT (AUTO) 322 K/uL (140-450); RED BLOOD CELL COUNT(AUTO) 3.43 MIL/uL (4.20-5.40); RED CELL DISTRIBUTION WIDTH 12.8 % (11.6-13.7); WHITE BLOOD COUNT (AUTO) 16.1 K/uL (4.8-10.8)
[2024-04-21 06:09] LABS: INR 0.92 (0.8-1.2); PARTIAL THROMBOPLASTIN TIME 30.7 secs (22-35.6); PROTHROMBIN TIME 9.7 secs (10.8-13.4)
[2024-04-21 06:26] LABS: ALBUMIN 2.3 g/dL (3.4-5.0); CALCIUM 8.5 mg/dL (8.5-10.1); CARBON DIOXIDE 26.4 mmol/L (21-32); CREATININE 0.8 mg/dL (0.6-1.3); MAGNESIUM 1.8 mg/dL (1.8-2.4); POTASSIUM 3.4 mmol/L (3.5-5.1); TOTAL BILIRUBIN 0.5 mg/dL (0.0-1.0); TOTAL PROTEIN, SERUM 7.2 g/dL (6.4-8.2)
[2024-04-21] MEDS: KCL 20 MEQ IN 100 mL PREMIX 200 ML IV PRN (10:48)
[2024-04-21] MEDS: VANCOMYCIN 1,000 MG in DEXTROSE 5% 250 ML IV SCH (10:56)
[2024-04-21] MEDS: HYDROGEN PEROXIDE 3% 240 ML BTL TP ONE (12:33)
[2024-04-21] MEDS: ACETAMINOPHEN 100 ML IV ONE (14:31)
[2024-04-21] MEDS ORDERED: SEVOFLURANE 250 ML BTL INH ONE (15:10)
[2024-04-21] MEDS: MIDAZOLAM 2 MG/2 ML VIAL ONE (15:12)
[2024-04-21] MEDS: LIDOCAINE 1% 500 MG/50 ML VIAL ONE ×2 (15:12→15:55)
[2024-04-21] MEDS: fentaNYL citrate 0.05 MG/ML VIAL ONE (15:13)
[2024-04-21] MEDS: PROPOFOL 200 MG/20 ML VIAL IV ONE (15:25)
[2024-04-21] MEDS: KETOROLAC 30 MG/ML VIAL ONE (15:26)
[2024-04-21] MEDS: ONDANSETRON 4 MG/2 ML VIAL ONE (15:26)
[2024-04-21] MEDS: METOCLOPRAMIDE 10 MG/2 ML INJ VIAL ONE (15:26)
[2024-04-21] MEDS: GLYCOPYRROLATE 0.2 MG/ML VIAL ONE (15:37)
[2024-04-21] MEDS: BUPIVACAINE-MPF 0.25% 30 ML VIAL INJ ONE (15:55)
[2024-04-21] MEDS ORDERED: diphenhydrAMINE 50 MG/ML VIAL IVP PRN (16:10)
[2024-04-21] MEDS ORDERED: HYDROmorphone 1 MG/ML AMP IVP PRN (16:10)
[2024-04-21] MEDS ORDERED: ONDANSETRON 4 MG/2 ML VIAL IVP PRN (16:10)
[2024-04-21] MEDS ORDERED: BLOOD GLUCOSE MONITORING 1 DEV DEV FS SCH (16:10)
[2024-04-21] MEDS: PIPERACILLIN/TAZOBACTAM 4.5 GM in DEXTROSE 5% 100 ML IV SCH (17:41)
[2024-04-21] MEDS ORDERED: NACL 0.9% 1,000 ML IV SCH (18:50)
[2024-04-21] MEDS: NACL 0.9% 1,000 ML IV SCH (18:54)
[2024-04-21] MEDS ORDERED: NOREPINEPHRINE 4 MG in DEXTROSE 5% 250 ML IV PRN (19:10)
[2024-04-21] MEDS: ALBUMIN HUMAN 25% 100 ML IV ONE ×2 (19:47)
[2024-04-21] MEDS: MIDODRINE 5 MG TAB ONE (19:48)
[2024-04-21] MEDS: MIDODRINE 5 MG TAB PO SCH (19:48)
[2024-04-21 19:53] LABS: BASOPHILS # (AUTO) 0.1 K/uL (0.00-0.22); BASOPHILS % (AUTO) 0.4 % (0.0-2.0); EOSINOPHILS % (AUTO) 0.1 % (0.0-4.0); HEMATOCRIT 24.5 % (36-48); LYMPHOCYTES # (AUTO) 2.1 K/uL (2.5-16.5); LYMPHOCYTES % (AUTO) 16.4 % (20.5-51.1); MEAN CORPUSCULAR HEMOGLOBIN 29 pg (27-31); MEAN CORPUSCULAR HGB CONC 33 g/dL (33-37); MEAN CORPUSCULAR VOLUME 89.4 fL (80-94); MONOCYTES % (AUTO) 7.7 % (1.7-9.3); NEUTROPHILS # (AUTO) 9.6 K/uL (1.8-7.7); NEUTROPHILS % (AUTO) 75.4 % (42.2-75.2); PLATELET COUNT (AUTO) 267 K/uL (140-450); RED BLOOD CELL COUNT(AUTO) 2.74 MIL/uL (4.20-5.40); RED CELL DISTRIBUTION WIDTH 13.1 % (11.6-13.7); WHITE BLOOD COUNT (AUTO) 12.8 K/uL (4.8-10.8)
[2024-04-21 20:13] LABS: ANION GAP 13.6 (8-16); CALCIUM 7.1 mg/dL (8.5-10.1); CARBON DIOXIDE 21.6 mmol/L (21-32); POTASSIUM 3.2 mmol/L (3.5-5.1)
[2024-04-21 20:49] LABS: LACTIC ACID 1.3 mmol/L (0.4-2.0)
[2024-04-22] VITALS (22 sets, daily range): BP systolic 92–174; BP diastolic 52–99; PULSE 63–101; RESP 11–27; TEMP 98.3–102.1; O2SAT 94–100
[2024-04-22] MEDS: ACETAMINOPHEN 100 ML IV PRN (02:01)
[2024-04-22] MEDS: POTASSIUM CHLORIDE 10 MEQ TABER PO PRN (02:50)
[2024-04-22 06:09] LABS: BASOPHILS # (AUTO) 0.1 K/uL (0.00-0.22); BASOPHILS % (AUTO) 0.4 % (0.0-2.0); EOSINOPHILS % (AUTO) 0.1 % (0.0-4.0); HEMATOCRIT 23.2 % (36-48); HEMOGLOBIN 7.8 g/dL (12.0-16.0); LYMPHOCYTES # (AUTO) 1.7 K/uL (2.5-16.5); LYMPHOCYTES % (AUTO) 11.7 % (20.5-51.1); MEAN CORPUSCULAR HEMOGLOBIN 30 pg (27-31); MEAN CORPUSCULAR HGB CONC 34 g/dL (33-37); MEAN CORPUSCULAR VOLUME 88.4 fL (80-94); MONOCYTES # (AUTO) 1.1 K/uL (0.8-1.0); MONOCYTES % (AUTO) 7.6 % (1.7-9.3); NEUTROPHILS # (AUTO) 11.7 K/uL (1.8-7.7); NEUTROPHILS % (AUTO) 80.2 % (42.2-75.2); PLATELET COUNT (AUTO) 246 K/uL (140-450); RED BLOOD CELL COUNT(AUTO) 2.62 MIL/uL (4.20-5.40); RED CELL DISTRIBUTION WIDTH 12.7 % (11.6-13.7); WHITE BLOOD COUNT (AUTO) 14.6 K/uL (4.8-10.8)
[2024-04-22 06:31] LABS: ALBUMIN 2.2 g/dL (3.4-5.0); ANION GAP 15.2 (8-16); CALCIUM 7.2 mg/dL (8.5-10.1); CARBON DIOXIDE 21.5 mmol/L (21-32); MAGNESIUM 1.5 mg/dL (1.8-2.4); POTASSIUM 3.7 mmol/L (3.5-5.1); TOTAL PROTEIN, SERUM 6.2 g/dL (6.4-8.2)
[2024-04-22] MEDS: MAG SULF 2000 MG/WATER PREMIX 50 ML IV PRN (09:37)
[2024-04-23] VITALS (9 sets, daily range): BP systolic 111–139; BP diastolic 53–77; PULSE 81–100; RESP 18; TEMP 98–101.7; O2SAT 97–100
[2024-04-23] MEDS: ONDANSETRON 4 MG/2 ML VIAL IVP PRN (05:06)
[2024-04-23 06:47] LABS: BASOPHILS % (AUTO) 0.3 % (0.0-2.0); EOSINOPHILS % (AUTO) 0.1 % (0.0-4.0); HEMATOCRIT 24.4 % (36-48); HEMOGLOBIN 8.3 g/dL (12.0-16.0); LYMPHOCYTES % (AUTO) 15.4 % (20.5-51.1); MEAN CORPUSCULAR HEMOGLOBIN 30 pg (27-31); MEAN CORPUSCULAR HGB CONC 34 g/dL (33-37); MEAN CORPUSCULAR VOLUME 87.7 fL (80-94); MONOCYTES # (AUTO) 0.9 K/uL (0.8-1.0); MONOCYTES % (AUTO) 7.2 % (1.7-9.3); PLATELET COUNT (AUTO) 311 K/uL (140-450); RED BLOOD CELL COUNT(AUTO) 2.79 MIL/uL (4.20-5.40); RED CELL DISTRIBUTION WIDTH 12.9 % (11.6-13.7); WHITE BLOOD COUNT (AUTO) 12.9 K/uL (4.8-10.8)
[2024-04-23 07:25] LABS: ANION GAP 15.4 (8-16); CALCIUM 7.7 mg/dL (8.5-10.1); CARBON DIOXIDE 21.5 mmol/L (21-32); CREATININE 0.7 mg/dL (0.6-1.3); MAGNESIUM 1.8 mg/dL (1.8-2.4); POTASSIUM 3.9 mmol/L (3.5-5.1); TOTAL BILIRUBIN 0.9 mg/dL (0.0-1.0); TOTAL PROTEIN, SERUM 6.8 g/dL (6.4-8.2)
[2024-04-24] VITALS (8 sets, daily range): BP systolic 114–145; BP diastolic 60–80; PULSE 83–96; RESP 16–19; TEMP 97.7–98.9; O2SAT 96–100
[2024-04-24 07:32] LABS: BASOPHILS # (AUTO) 0.1 K/uL (0.00-0.22); BASOPHILS % (AUTO) 0.6 % (0.0-2.0); EOSINOPHILS # (AUTO) 0.1 K/uL (0-0.4); EOSINOPHILS % (AUTO) 0.4 % (0.0-4.0); HEMATOCRIT 25.3 % (36-48); HEMOGLOBIN 8.5 g/dL (12.0-16.0); LYMPHOCYTES # (AUTO) 2.1 K/uL (2.5-16.5); LYMPHOCYTES % (AUTO) 16.4 % (20.5-51.1); MEAN CORPUSCULAR HEMOGLOBIN 29 pg (27-31); MEAN CORPUSCULAR HGB CONC 33 g/dL (33-37); MEAN CORPUSCULAR VOLUME 87.7 fL (80-94); MONOCYTES # (AUTO) 1.1 K/uL (0.8-1.0); MONOCYTES % (AUTO) 8.5 % (1.7-9.3); NEUTROPHILS # (AUTO) 9.3 K/uL (1.8-7.7); NEUTROPHILS % (AUTO) 74.1 % (42.2-75.2); PLATELET COUNT (AUTO) 330 K/uL (140-450); RED BLOOD CELL COUNT(AUTO) 2.89 MIL/uL (4.20-5.40); RED CELL DISTRIBUTION WIDTH 13.1 % (11.6-13.7); WHITE BLOOD COUNT (AUTO) 12.6 K/uL (4.8-10.8)
[2024-04-24 08:11] LABS: ANION GAP 15.4 (8-16); CALCIUM 8.4 mg/dL (8.5-10.1); CARBON DIOXIDE 22.6 mmol/L (21-32); CREATININE 0.6 mg/dL (0.6-1.3); MAGNESIUM 1.7 mg/dL (1.8-2.4); TOTAL BILIRUBIN 0.7 mg/dL (0.0-1.0); TOTAL PROTEIN, SERUM 6.9 g/dL (6.4-8.2)
[2024-04-24] MEDS ORDERED: AMOX-1230 PO (11:13)
[2024-04-24] MEDS ORDERED: DOXY-690 PO (11:13)
[2024-04-25 04:00] VITALS: BP 145/87; PULSE 91; RESP 20; TEMP 98.8; O2SAT 99
[2024-04-25 08:00] VITALS: BP 118/66; PULSE 81; PULSE 88; RESP 19; TEMP 98.9; O2SAT 96; O2SAT 97
[2024-04-25] MEDS: LIDOCAINE/EPI 1% 1:100000 20 ML VIAL INJ ONE (08:55)
[2024-04-25] MEDS: HYDROGEN PEROXIDE 3% 240 ML BTL TP ONE (08:55)
[2024-04-25] MEDS: HYDROmorphone PFS 2 MG/ML SYR ONE (09:05)
[2024-04-25] MEDS: ONDANSETRON 4 MG/2 ML VIAL ONE (09:38)
[2024-04-25] MEDS: METOCLOPRAMIDE 10 MG/2 ML INJ VIAL ONE (09:38)
[2024-04-25] MEDS: PROPOFOL 200 MG/20 ML VIAL IV ONE (09:38)
[2024-04-25] MEDS: BUPIVACAINE-MPF 0.25% 30 ML VIAL INJ ONE (09:56)
[2024-04-25] MEDS ORDERED: MEPERIDINE 25 MG/ML SYR IVP PRN (10:10)
[2024-04-25] MEDS ORDERED: BLOOD GLUCOSE MONITORING 1 DEV DEV FS SCH (10:10)
[2024-04-25] MEDS ORDERED: HYDROmorphone 1 MG/ML AMP IVP PRN (10:10)
[2024-04-25] MEDS ORDERED: ONDANSETRON 4 MG/2 ML VIAL IVP PRN (10:10)
[2024-04-25 12:00] VITALS: BP 124/64; PULSE 80; RESP 16; TEMP 98; O2SAT 96
[2024-04-25] MEDS ORDERED: AMPICILLIN/SULBACTAM 3 GM in NACL 0.9% 100 ML IV SCH (12:00)
[2024-04-25] MEDS ORDERED: VANCOMYCIN PER PHARMACY MC PRN (13:45)
[2024-04-25 16:00] VITALS: BP 151/77; PULSE 101; RESP 18; TEMP 97.8; O2SAT 97
[2024-04-25 20:00] VITALS: BP 101/58; PULSE 89; RESP 19; TEMP 99.5; O2SAT 99
[2024-04-25 21:00] VITALS: PULSE 89; RESP 19; O2SAT 99
[2024-04-26] VITALS (8 sets, daily range): BP systolic 97–148; BP diastolic 58–76; PULSE 76–85; RESP 18–19; TEMP 37.2; O2SAT 95–99
[2024-04-27] VITALS (7 sets, daily range): BP systolic 114–153; BP diastolic 59–82; PULSE 52–94; RESP 16–19; TEMP 98–98.4; O2SAT 95–100
[2024-04-28 04:00] VITALS: BP 147/70; PULSE 87; RESP 16; TEMP 97.6; O2SAT 97
[2024-04-28 08:00] VITALS: BP 128/68; PULSE 82; PULSE 97; RESP 18; RESP 19; TEMP 98; TEMP 98.2; O2SAT 97; O2SAT 98
[2024-04-28 12:00] VITALS: TEMP 97.6
[2024-04-28 18:41] VITALS: BP 126/93; PULSE 83; RESP 18; TEMP 98.1; O2SAT 98
[2024-04-28 20:00] VITALS: PULSE 80; RESP 18; TEMP 98.5; O2SAT 96
[2024-04-28] MEDS: INSULIN LANTUS 100 UNITS/ML 10 ML VIAL SUBQ SCH (22:41)
[2024-04-29] VITALS (8 sets, daily range): BP systolic 105–143; BP diastolic 62–82; PULSE 80–97; RESP 18; TEMP 97.7–100; O2SAT 96–100
[2024-04-29] MEDS: INSULIN LISPRO 100 UNITS/ML VIAL SUBQ SCH (11:47)
[2024-04-29] MEDS ORDERED: AMOX-1230 PO (14:57)
[2024-04-29] MEDS ORDERED: LINE600T4 PO (14:57)
[2024-04-29] MEDS: PIPERACILLIN/TAZOBACTAM 3.375 GM in DEXTROSE 5% 50 ML IV SCH (18:22)
[2024-04-30 04:00] VITALS: BP 114/51; PULSE 75; RESP 18; TEMP 97.5; O2SAT 97
[2024-04-30 08:00] VITALS: PULSE 87; RESP 17; TEMP 98; O2SAT 97
[2024-04-30 12:00] VITALS: BP 104/62; PULSE 76; RESP 18; TEMP 97.5; O2SAT 97
[2024-04-30 12:03] LABS: ANION GAP 9.4 (8-16); CALCIUM 8.8 mg/dL (8.5-10.1); CREATININE 0.7 mg/dL (0.6-1.3); POTASSIUM 4.4 mmol/L (3.5-5.1)
[2024-04-30 18:00] VITALS: BP 122/74; PULSE 81; RESP 17; TEMP 98; O2SAT 97
[2024-04-30 18:47] VITALS: BP 122/74; PULSE 81; RESP 17; TEMP 98
== END 2024-04-30 19:40 | disposition home health service (06) | DRG 710 ==
LOC: MED 19:20 → MTU 21:36 → MIC 04-21 19:10 → MTU 04-22 13:50
PROVIDERS: ADMIT Hospitalist; ATTEND Hospitalist
PROC: 0Y6M0Z4 Detachment at Right Foot, Complete 1st Ray, Open Approach (ICD-10-PCS; 2024-04-21)
PROC: 0Y6M0Z5 Detachment at Right Foot, Complete 2nd Ray, Open Approach (ICD-10-PCS; principal; 2024-04-25 09:00)
DX: A41.9 Sepsis, unspecified organism (principal); E11.52 Type 2 diabetes mellitus with diabetic peripheral angiopathy with gangrene; A48.0 Gas gangrene; E44.0 Moderate protein-calorie malnutrition; N17.9 Acute kidney failure, unspecified; E11.621 Type 2 diabetes mellitus with foot ulcer; E87.1 Hypo-osmolality and hyponatremia; I95.9 Hypotension, unspecified; R71.0 Precipitous drop in hematocrit; L03.115 Cellulitis of right lower limb; L97.519 Non-pressure chronic ulcer of other part of right foot with unspecified severity; E11.69 Type 2 diabetes mellitus with other specified complication; E11.65 Type 2 diabetes mellitus with hyperglycemia; I10 Essential (primary) hypertension; E78.5 Hyperlipidemia, unspecified; M86.8X7 Other osteomyelitis, ankle and foot; Z79.899 Other long term (current) drug therapy; Z68.24 Body mass index [BMI] 24.0-24.9, adult
CPT/HCPCS: 36415; 73630; 73700; 80048; 80053; 80076; 80202; 81001; 82948; 83605; 83615; 83735; 84703; 85025; 85610; 85730; 87040; 87070; 87075; 87081; 87086; 87205; 88305; 88311; 96365; 96375; 99285; J0696; J1170; J1644; J1815; J1885; J2001; J2250; J2270; J2405; J2543; J2704; J2765; J3010; J3370; J3475; J3480; J3490; J7030; J7060; P9046; Q0092

== ENCOUNTER 2024-05-03 18:11 | Inpatient (IN) | payer OTHER ==
[~2024-05-03] VITALS: Ht 152.4 cm; Wt 59.4 kg
[~2024-05-03 18:11] MED LIST changes: +AMOX-1230 PO; +GLIP5TER PO; +LINE600T4 PO; -METR-520 PO
[2024-05-03 18:14] VITALS: BP 113/69; PULSE 87; RESP 16; TEMP 97.2; O2SAT 99
[2024-05-03 19:10] LABS: BASOPHILS # (AUTO) 0.1 K/uL (0.00-0.22); BASOPHILS % (AUTO) 0.5 % (0.0-2.0); EOSINOPHILS # (AUTO) 0.1 K/uL (0-0.4); EOSINOPHILS % (AUTO) 1.3 % (0.0-4.0); HEMATOCRIT 31.3 % (36-48); HEMOGLOBIN 10.5 g/dL (12.0-16.0); LYMPHOCYTES # (AUTO) 2.7 K/uL (2.5-16.5); LYMPHOCYTES % (AUTO) 25.8 % (20.5-51.1); MEAN CORPUSCULAR HEMOGLOBIN 30 pg (27-31); MEAN CORPUSCULAR HGB CONC 34 g/dL (33-37); MEAN CORPUSCULAR VOLUME 88.1 fL (80-94); MONOCYTES # (AUTO) 0.5 K/uL (0.8-1.0); MONOCYTES % (AUTO) 5.1 % (1.7-9.3); NEUTROPHILS # (AUTO) 7.2 K/uL (1.8-7.7); NEUTROPHILS % (AUTO) 67.3 % (42.2-75.2); PLATELET COUNT (AUTO) 711 K/uL (140-450); RED BLOOD CELL COUNT(AUTO) 3.55 MIL/uL (4.20-5.40); RED CELL DISTRIBUTION WIDTH 13.7 % (11.6-13.7); WHITE BLOOD COUNT (AUTO) 10.6 K/uL (4.8-10.8)
[2024-05-03 19:23] LABS: ANION GAP 12.7 (8-16); CALCIUM 9.6 mg/dL (8.5-10.1); CARBON DIOXIDE 27.8 mmol/L (21-32); CREATININE 0.9 mg/dL (0.6-1.3); POTASSIUM 4.5 mmol/L (3.5-5.1)
[2024-05-03 19:36] LABS: LACTIC ACID 2.1 mmol/L (0.4-2.0)
[2024-05-03] MEDS ORDERED: VANCOMYCIN 1,000 MG VIAL ONE (20:27)
[2024-05-03] MEDS: VANCOMYCIN 1,000 MG in DEXTROSE 5% 250 ML IV ONE (20:43)
[2024-05-03] MEDS ORDERED: MAG SULF 2000 MG/WATER PREMIX 50 ML IV PRN (21:10)
[2024-05-03] MEDS ORDERED: ONDANSETRON 4 MG/2 ML VIAL IVP PRN (21:10)
[2024-05-03] MEDS ORDERED: HYDROcodone/APAP 5/325 MG 1 TAB TAB PO PRN (21:10)
[2024-05-03] MEDS ORDERED: POTASSIUM CHLORIDE 10 MEQ TABER PO PRN (21:10)
[2024-05-03] MEDS ORDERED: KCL 20 MEQ IN 100 mL PREMIX 200 ML IV PRN (21:10)
[2024-05-03] MEDS ORDERED: MAGNESIUM OXIDE 400 MG TAB PO PRN (21:10)
[2024-05-03] MEDS ORDERED: VANCOMYCIN PER PHARMACY MC PRN (21:10)
[2024-05-03] MEDS ORDERED: DEXTROSE 50% 50 ML SYR IVP PRN (21:15)
[2024-05-03] MEDS ORDERED: GLIP5TER PO (21:21)
[2024-05-03] MEDS ORDERED: AMOX-999 PO (21:21)
[2024-05-03] MEDS ORDERED: DOXY-690 PO (21:21)
[2024-05-03] MEDS ORDERED: LINE600T4 PO (21:21)
[2024-05-03] MEDS ORDERED: METF-713 PO (21:21)
[2024-05-03] MEDS: NACL 0.9% 1,000 ML IV ONE (21:22)
[2024-05-03 22:25] VITALS: PULSE 85; RESP 20; O2SAT 97
[2024-05-03] MEDS: cefTRIAXone 1,000 MG VIAL ONE (23:25)
[2024-05-03] MEDS: PIPERACILLIN/TAZOBACTAM 3.375 GM VIAL IV ONE (23:25)
[2024-05-03] MEDS: MORPHINE SULFATE 2 MG/ML SYR IVP PRN (23:28)
[2024-05-03] MEDS: PIPERACILLIN/TAZOBACTAM 3.375 GM in DEXTROSE 5% 50 ML IV ONE (23:28)
[2024-05-03] MEDS: INSULIN LISPRO SLIDING SCALE 100 UNITS/ML VIAL SUBQ PRN (23:37)
[2024-05-04 07:16] LABS: BASOPHILS # (AUTO) 0.1 K/uL (0.00-0.22); BASOPHILS % (AUTO) 0.8 % (0.0-2.0); EOSINOPHILS # (AUTO) 0.2 K/uL (0-0.4); EOSINOPHILS % (AUTO) 2.2 % (0.0-4.0); HEMATOCRIT 29.4 % (36-48); HEMOGLOBIN 9.9 g/dL (12.0-16.0); LYMPHOCYTES # (AUTO) 2.7 K/uL (2.5-16.5); LYMPHOCYTES % (AUTO) 28.2 % (20.5-51.1); MEAN CORPUSCULAR HEMOGLOBIN 30 pg (27-31); MEAN CORPUSCULAR HGB CONC 34 g/dL (33-37); MEAN CORPUSCULAR VOLUME 87.7 fL (80-94); MONOCYTES # (AUTO) 0.6 K/uL (0.8-1.0); MONOCYTES % (AUTO) 6.4 % (1.7-9.3); NEUTROPHILS % (AUTO) 62.4 % (42.2-75.2); PLATELET COUNT (AUTO) 635 K/uL (140-450); RED BLOOD CELL COUNT(AUTO) 3.35 MIL/uL (4.20-5.40); RED CELL DISTRIBUTION WIDTH 13.9 % (11.6-13.7); WHITE BLOOD COUNT (AUTO) 9.7 K/uL (4.8-10.8)
[2024-05-04 07:47] LABS: ALBUMIN 2.4 g/dL (3.4-5.0); ANION GAP 14.1 (8-16); CALCIUM 8.8 mg/dL (8.5-10.1); CREATININE 0.7 mg/dL (0.6-1.3); MAGNESIUM 1.6 mg/dL (1.8-2.4); POTASSIUM 4.1 mmol/L (3.5-5.1); TOTAL BILIRUBIN 0.2 mg/dL (0.0-1.0); TOTAL PROTEIN, SERUM 7.6 g/dL (6.4-8.2)
[2024-05-04 08:00] VITALS: PULSE 90; RESP 18; O2SAT 99
[2024-05-04] MEDS: BLOOD GLUCOSE MONITORING 1 DEV DEV FS SCH (08:03)
[2024-05-04] MEDS: MAGNESIUM OXIDE 400 MG TAB PO PRN (08:56)
[2024-05-04] MEDS ORDERED: VANCOMYCIN 1,000 MG in DEXTROSE 5% 250 ML IV SCH (09:01)
[2024-05-04] MEDS: VANCOMYCIN HCL 750 MG in DEXTROSE 5% 250 ML IV SCH (09:40)
[2024-05-04 16:00] VITALS: BP 113/73; PULSE 90; RESP 18; TEMP 98.4; O2SAT 100
[2024-05-04 20:00] VITALS: BP 122/77; PULSE 84; PULSE 88; RESP 16; TEMP 98.4; O2SAT 100; O2SAT 99
[2024-05-04] MEDS: MEDS-TO-BEDS MC SCH (21:18)
[2024-05-05 04:00] VITALS: BP 126/82; PULSE 95; RESP 18; TEMP 98.7; O2SAT 99
[2024-05-05 06:45] LABS: BASOPHILS # (AUTO) 0.1 K/uL (0.00-0.22); BASOPHILS % (AUTO) 0.9 % (0.0-2.0); EOSINOPHILS # (AUTO) 0.1 K/uL (0-0.4); EOSINOPHILS % (AUTO) 1.3 % (0.0-4.0); HEMOGLOBIN 10.8 g/dL (12.0-16.0); LYMPHOCYTES # (AUTO) 2.4 K/uL (2.5-16.5); LYMPHOCYTES % (AUTO) 28.4 % (20.5-51.1); MEAN CORPUSCULAR HEMOGLOBIN 29 pg (27-31); MEAN CORPUSCULAR HGB CONC 34 g/dL (33-37); MEAN CORPUSCULAR VOLUME 86.6 fL (80-94); MONOCYTES # (AUTO) 0.5 K/uL (0.8-1.0); MONOCYTES % (AUTO) 6.1 % (1.7-9.3); NEUTROPHILS # (AUTO) 5.3 K/uL (1.8-7.7); NEUTROPHILS % (AUTO) 63.3 % (42.2-75.2); PLATELET COUNT (AUTO) 652 K/uL (140-450); RED BLOOD CELL COUNT(AUTO) 3.69 MIL/uL (4.20-5.40); RED CELL DISTRIBUTION WIDTH 13.7 % (11.6-13.7); WHITE BLOOD COUNT (AUTO) 8.4 K/uL (4.8-10.8)
[2024-05-05 07:05] LABS: ALBUMIN 2.6 g/dL (3.4-5.0); ANION GAP 11.2 (8-16); CALCIUM 9.7 mg/dL (8.5-10.1); CARBON DIOXIDE 28.4 mmol/L (21-32); CREATININE 0.7 mg/dL (0.6-1.3); MAGNESIUM 1.9 mg/dL (1.8-2.4); POTASSIUM 4.6 mmol/L (3.5-5.1); TOTAL BILIRUBIN 0.3 mg/dL (0.0-1.0)
[2024-05-05 08:00] VITALS: BP 120/66; PULSE 86; PULSE 96; RESP 17; RESP 18; TEMP 97.8; O2SAT 97; O2SAT 98
[2024-05-05] MEDS ORDERED: THERAHONEY GEL 42.5 GM TP PRN (14:40)
[2024-05-05 16:00] VITALS: BP 101/61; PULSE 86; RESP 18; TEMP 98.6; O2SAT 100
[2024-05-05 20:00] VITALS: BP 115/71; PULSE 87; RESP 17; RESP 18; TEMP 98.2; O2SAT 99
[2024-05-06] VITALS: BP 117/69; PULSE 85; RESP 17; TEMP 97.9; O2SAT 99
[2024-05-06 04:00] VITALS: BP 114/70; PULSE 92; RESP 19; TEMP 98.3; O2SAT 99
[2024-05-06 08:00] VITALS: BP 101/54; PULSE 98; RESP 18; RESP 19; TEMP 98.2; O2SAT 98
[2024-05-06 08:21] LABS: BASOPHILS # (AUTO) 0.1 K/uL (0.00-0.22); BASOPHILS % (AUTO) 1.3 % (0.0-2.0); EOSINOPHILS # (AUTO) 0.1 K/uL (0-0.4); EOSINOPHILS % (AUTO) 1.1 % (0.0-4.0); HEMATOCRIT 33.2 % (36-48); HEMOGLOBIN 11.1 g/dL (12.0-16.0); LYMPHOCYTES # (AUTO) 2.4 K/uL (2.5-16.5); LYMPHOCYTES % (AUTO) 27.9 % (20.5-51.1); MEAN CORPUSCULAR HEMOGLOBIN 30 pg (27-31); MEAN CORPUSCULAR HGB CONC 34 g/dL (33-37); MEAN CORPUSCULAR VOLUME 88.7 fL (80-94); MONOCYTES # (AUTO) 0.5 K/uL (0.8-1.0); NEUTROPHILS # (AUTO) 5.5 K/uL (1.8-7.7); NEUTROPHILS % (AUTO) 63.7 % (42.2-75.2); PLATELET COUNT (AUTO) 646 K/uL (140-450); RED BLOOD CELL COUNT(AUTO) 3.74 MIL/uL (4.20-5.40); RED CELL DISTRIBUTION WIDTH 14.1 % (11.6-13.7); WHITE BLOOD COUNT (AUTO) 8.6 K/uL (4.8-10.8)
[2024-05-06 08:44] LABS: ALBUMIN 2.8 g/dL (3.4-5.0); ANION GAP 16.8 (8-16); CALCIUM 9.7 mg/dL (8.5-10.1); CARBON DIOXIDE 26.2 mmol/L (21-32); CREATININE 0.8 mg/dL (0.6-1.3); MAGNESIUM 1.9 mg/dL (1.8-2.4); TOTAL BILIRUBIN 0.4 mg/dL (0.0-1.0); TOTAL PROTEIN, SERUM 8.9 g/dL (6.4-8.2)
[2024-05-06] MEDS: VANCOMYCIN 1,000 MG in DEXTROSE 5% 250 ML IV SCH (10:00)
[2024-05-06] MEDS: ACETAMINOPHEN 325 MG TAB PO PRN (11:00)
[2024-05-06 12:00] VITALS: BP 101/54; PULSE 98; RESP 19; TEMP 98.2; O2SAT 98
[2024-05-06] MEDS: THERAHONEY GEL 42.5 GM TP SCH (12:29)
[2024-05-06] MEDS ORDERED: VANCOMYCIN 1,000 MG in DEXTROSE 5% 250 ML IV SCH (18:00)
== END 2024-05-06 16:20 | disposition home health service (06) | DRG 349 ==
LOC: MED 18:11 → MTU 21:10
PROVIDERS: ADMIT Internal Medicine; ATTEND Internal Medicine
DX: T87.43 Infection of amputation stump, right lower extremity (principal); E43 Unspecified severe protein-calorie malnutrition; E11.52 Type 2 diabetes mellitus with diabetic peripheral angiopathy with gangrene; A48.0 Gas gangrene; D63.8 Anemia in other chronic diseases classified elsewhere; E87.1 Hypo-osmolality and hyponatremia; E87.20 Acidosis, unspecified; L03.115 Cellulitis of right lower limb; M86.8X7 Other osteomyelitis, ankle and foot; E11.69 Type 2 diabetes mellitus with other specified complication; I10 Essential (primary) hypertension; E11.621 Type 2 diabetes mellitus with foot ulcer; L97.519 Non-pressure chronic ulcer of other part of right foot with unspecified severity; Y83.8 Other surgical procedures as the cause of abnormal reaction of the patient, or of later complication, without mention of misadventure at the time of the procedure; E78.5 Hyperlipidemia, unspecified; Z79.899 Other long term (current) drug therapy
CPT/HCPCS: 36415; 73660; 80048; 80053; 80202; 82948; 83605; 83735; 85025; 87040; 87081; 93925; 96374; 99285; J0696; J1644; J2270; J2543; J3370; J7060; Q0092